=== PATIENT | male | born 1960 ===

== ENCOUNTER 2022-02-16 10:39 | Outpatient (CLI) | payer MEDICARE, SELFPAY | END 2022-02-16 10:40 | disposition home or self-care (01) | LOC: ANHAUDIO 10:42 | PROVIDERS: PCP Family Medicine; Visit Provider Family Medicine | DX: Z01.10 Encounter for examination of ears and hearing without abnormal findings (principal) | CPT/HCPCS: 92557; 92567 ==

== ENCOUNTER 2023-02-21 10:46 | Outpatient (CLI) | payer MEDICARE, MEDICAID, SELFPAY | END 2023-02-21 10:47 | disposition home or self-care (01) | LOC: ANHAUDIO 10:46 | PROVIDERS: PCP Family Medicine; Visit Provider Family Medicine | DX: H90.3 Sensorineural hearing loss, bilateral (principal) | CPT/HCPCS: 92557; 92567 ==

== ENCOUNTER 2024-02-27 07:51 | Outpatient (CLI) | payer MEDICARE, SELFPAY | END 2024-02-27 07:52 | disposition home or self-care (01) | LOC: ANHAUDIO 07:52 | PROVIDERS: PCP Family Medicine; Visit Provider Family Medicine | DX: Z01.10 Encounter for examination of ears and hearing without abnormal findings (principal); H90.3 Sensorineural hearing loss, bilateral; H61.21 Impacted cerumen, right ear | CPT/HCPCS: 92557; 92567 ==

== ENCOUNTER 2025-02-28 11:09 | Outpatient (CLI) | payer MEDICARE, MEDICAID, SELFPAY ==
--- OUTSIDE RECORDS SUMMARY | 2025-02-28 11:12 | XMS_ITS ---
Author Organization Unknown Address [address] [place] [address] [phone] Phone Care Team Providers Care Slot Floor Attendant Name Role Phone YOSEF Chowdhury Attending Unavailable SAHRA STILL CRNA Unavailable SUE Belle Primary Unavailable Immunization Immunization Date Status Additional Notes Code Code System Tdap 02/10/2022 Completed 115 CVX Influenza, split virus, trivalent, PF 05/28/2016 Completed 140 CVX Influenza, split virus, trivalent, preservative 05/03/2015 Completed 141 CVX Influenza, split virus, trivalent, preservative 04/24/2024 Completed 141 CVX Influenza, split virus, quadrivalent, PF 05/13/2017 Completed 150 CVX Influenza, split virus, quadrivalent, PF 04/26/2019 Completed 150 CVX Influenza, split virus, quadrivalent, preservative 04/20/2022 Completed 158 C VX Influenza, split virus, quadrivalent, preservative 04/19/2023 Completed 158 C VX Influenza, recombinant, quadrivalent, PF 05/16/2020 Completed 185 CVX COVID-19, mRNA, LNP-S, PF, 3 0 mcg/0.3 mL dose 10/20/2020 Completed 208 CVX COVID-19, mRNA, LNP-S, PF, 3 0 mcg/0.3 mL dose 11/10/2020 Completed 208 CVX COVID-19, mRNA, LNP-S, PF, 3 0 mcg/0.3 mL dose 05/25/2021 Completed 208 CVX COVID-19, mRNA, LNP-S, bivalent, PF, 30 mcg/0.3 mL dose 10/27/2022 Completed 300 CVX COVID-19, mRNA, LNP-S, PF, 5 0 mcg/0.5 mL 05/06/2024 Completed 312 CVX Social History Type Status Start Date End Date Code Code Syst em Smoking History Never smoker (Never Smoked) 920472164 SNOMED CT Sex Male Sexual Orientation Straight or Heterosexual 95032814 SNOMED CT Gender Identity Male [id number] [address] Vital Signs Vital Sign Value Unit [place] Value [place] Unit Date/Time Recent/Initial? Code Code System Body Mass Index 32.28 kg/m2 08/02/2024 08:08 Most Recent 02700 -5 LOINC Body Mass Index 32.28 kg/m2 07/24/2024 10:25 Initial 58391 -5 LOINC Systolic Blood Pressure 128 mm[Hg] 08/02/2024 08:18 Initial 8480- 6 LOINC Diastolic Blood Pressure 73 mm[Hg] 08/02/2024 08:18 Initial 8462- 4 LOINC Body Surface Area 2.25 m2 08/02/2024 08:08 Most Recent 3140- 1 LOINC Body Surface Area 2.25 m2 07/24/2024 10:25 Initial 3140- 1 LOINC Height 177.800 0 cm 70.00 in 08/02/2024 08:08 Most Recent 8302- 2 LOINC Height 177.800 0 cm 70.00 in 07/24/2024 10:25 Initial 8302- 2 LOINC O2 Saturation 97 % 2023 08:18 Initial 87965 -5 LOINC Pulse 85.0 /min 08/02/2024 08:18 Initial 8867- 4 LOINC Respiration 18 /min 08/02/20 08:18 Initial 9279- 1 LOINC Temperature 36.7 Zari 98.0 F 08/02/20 24 08:18 Initial 8310- 5 LOINC Weight 102.06 kg 225.00 lbs 08/02/2024 08:08 Most Recent 82733 -7 LOINC Weight 102.06 kg 225.00 lbs 07/24/2024 10:25 Initial 89395 -7 LOINC Medications Medication Start Date End Date Route Frequency Dose Code Code System Medication Instructions Home Meds Acetaminophen 325MG Oral Tablet 06/24/2022 Unknown ORAL NEEDED EVERY 4 HOURS 2 TABLET 360127 RxNorm TAKE 2 TABLET ORAL NEEDED EVERY 4 HOURS Benazepril Hydrochloride 20MG Oral Tablet 06/24/2022 Unknown ORAL TWICE A DAY 20 MILLIGRAMS 758985 RxNorm TAKE 20 MILLIGRAMS ORAL TWICE A DAY Eliquis 5MG Oral Tablet 06/24/2022 Unknown ORAL TWICE A DAY 5 MILLIGRAMS 1732008 RxNorm TAKE 5 MILLIGRAMS ORAL TWICE A DAY Fenofibrate 145MG Oral Tablet 06/24/2022 Unknown ORAL ONCE A DAY 145 MILLIGRAMS 829698 RxNorm TAKE 145 MILLIGRAMS ORAL ONCE A DAY Myrbetriq 25MG Oral Tablet, Extended Release 06/24/2022 Unknown ORAL ONCE A DAY 25 MILLIGRAMS 2495923 RxNorm TAKE 25 MILLIGRAMS ORAL ONCE A DAY Tamsulosin HCl 0.4MG Oral Capsule 06/24/2022 Unknown ORAL AT BEDTIME 0.4 MILLIGRAMS 403810 RxNorm TAKE 0.4 MILLIGRAMS ORAL AT BEDTIME Hospital Discharge Instructions Should you have any questions prior to discharge, please contact a member of your healthcare team. If you have left the hospital and have any questions, please contact your primary care physician. Reason For Referral No Data Found Procedures Procedure Name Date Status Code Code Syste m Anesthesia for lower intesti nal endoscopic procedures, endoscope introduce 08/02/2024 completed 51453 CPT Colonoscopy completed 27080837 SNOMEDCT Colonoscopy, flexible; with biopsy, single or multiple 08/02/2024 completed 19124 CPT Allergies and Adverse Reactions Allergy Substance Reaction Severity Start Date Concern Status Co de Code System No Known Allergies Moderate Active 448198747 SN OMED-CT Plan of Treatment COVID-19 Drive Thru Screen 06/16/2020 COVID-19 Antibody Therapy Infusion 03/14 Colonoscopy 06/24/2022 Colonoscopy 08/02/2024 US Kidney & Bladder (35084) 02/13/2025 Encounters Encounter Diagnosis Start Date Code Code Sys tem Encounter for screening for malignant neoplasm of colo n 08/02/2024 SNOMED-CT Personal Care Team Section Performer Name Performer Role Active Date Inactive CHAN Garnica PCP - Primary care physician 2022-04-20 Procedures Notes
--- OUTSIDE RECORDS SUMMARY | 2025-02-28 11:13 | XMS_ITS ---
Author Organization Unknown Address [address] [place] [address] [phone] Phone Care Team Providers Care Check Inspector Name Role Phone PETER JENNINGS Attending Unavailable SUE Belle Primary Unavailable Immunization Immunization [...] em Smoking History Never smoker (Never Smoked) 061677860 SNOMED CT Sex Male Sexual Orientation Straight or Heterosexual 52552751 SNOMED CT Gender Identity Male [id number] [address] Medications Medication Start Date End Date Route Frequency Dose Code Code System Medication Instructions Home Meds Acetaminophen 325MG Oral Tablet 06/24/2022 Unknown ORAL NEEDED EVERY 4 HOURS 2 TABLET 166312 RxNorm TAKE 2 TABLET ORAL NEEDED EVERY 4 HOURS Benazepril Hydrochloride 20MG Oral Tablet 06/24/2022 Unknown ORAL TWICE A DAY 20 MILLIGRAMS 474015 RxNorm TAKE 20 MILLIGRAMS ORAL TWICE A DAY Eliquis 5MG Oral Tablet 06/24/2022 Unknown ORAL TWICE A DAY 5 MILLIGRAMS 2137665 RxNorm TAKE 5 MILLIGRAMS ORAL TWICE A DAY Fenofibrate 145MG Oral Tablet 06/24/2022 Unknown ORAL ONCE A DAY 145 MILLIGRAMS 808963 RxNorm TAKE 145 MILLIGRAMS ORAL ONCE A DAY Myrbetriq 25MG Oral Tablet, Extended Release 06/24/2022 Unknown ORAL ONCE A DAY 25 MILLIGRAMS 6463325 RxNorm TAKE 25 MILLIGRAMS ORAL ONCE A DAY Tamsulosin HCl 0.4MG Oral Capsule 06/24/2022 Unknown ORAL AT BEDTIME 0.4 MILLIGRAMS 281904 RxNorm TAKE 0.4 MILLIGRAMS ORAL AT BEDTIME Hospital Discharge Instructions Should you have any questions prior to discharge, please contact a member of your healthcare team. If you have left the hospital and have any questions, please contact your primary care physician. Reason For Referral No Data Found Allergies and Adverse Reactions Allergy Substance Reaction Severity Start Date Concern Status Co de Code System No Known Allergies Moderate Active 907292638 SN OMED-CT Plan of Treatment COVID-19 Drive Thru Screen 06/16/2020 COVID-19 Antibody Therapy Infusion 03/14 Colonoscopy 06/24/2022 Colonoscopy 08/02/2024 Kidney & Bladder (06822) 02/13/2025 Encounters Encounter Diagnosis Start Date Code Code Sys tem Abnormal gait 02/11/2025 61511322 SNOMED-CT Personal Care Team Section Performer Name Performer Role Active Date Inactive CHAN Garnica PCP - Primary care physician 2022-04-20
--- OUTSIDE RECORDS SUMMARY | 2025-02-28 11:13 | XMS_ITS ---
Author Organization Unknown Address [address] [place] [address] [phone] Phone Care Team Providers Care Chief Operator Synthesis Name Role Phone PETER JENNINGS Attending Unavailable [...] em Smoking History Never smoker (Never Smoked) 131529213 SNOMED CT Sex Male Sexual Orientation Straight or Heterosexual 30568563 SNOMED CT Gender Identity Male [id number] [address] Medications Medication Start Date End Date Route Frequency Dose Code Code System Medication Instructions Home Meds Acetaminophen 325MG Oral Tablet 06/24/2022 Unknown ORAL NEEDED EVERY 4 HOURS 2 TABLET 674598 RxNorm TAKE 2 TABLET ORAL NEEDED EVERY 4 HOURS Benazepril Hydrochloride 20MG Oral Tablet 06/24/2022 Unknown ORAL TWICE A DAY 20 MILLIGRAMS 997370 RxNorm TAKE 20 MILLIGRAMS ORAL TWICE A DAY Eliquis 5MG Oral Tablet 06/24/2022 Unknown ORAL TWICE A DAY 5 MILLIGRAMS 4329624 RxNorm TAKE 5 MILLIGRAMS ORAL TWICE A DAY Fenofibrate 145MG Oral Tablet 06/24/2022 Unknown ORAL ONCE A DAY 145 MILLIGRAMS 595142 RxNorm TAKE 145 MILLIGRAMS ORAL ONCE A DAY Myrbetriq 25MG Oral Tablet, Extended Release 06/24/2022 Unknown ORAL ONCE A DAY 25 MILLIGRAMS 7040056 RxNorm TAKE 25 MILLIGRAMS ORAL ONCE A DAY Tamsulosin HCl 0.4MG Oral Capsule 06/24/2022 Unknown ORAL AT BEDTIME 0.4 MILLIGRAMS 518488 RxNorm TAKE 0.4 MILLIGRAMS ORAL AT BEDTIME [...] Code System No Known Allergies Moderate Active 749792130 SN OMED-CT Plan of Treatment COVID-19 Drive Thru Screen 06/16/2020 COVID-19 Antibody Therapy Infusion 03/14 Colonoscopy 06/24/2022 Colonoscopy 08/02/2024 Kidney & Bladder (42741) 02/13/2025 Encounters Encounter Diagnosis Start Date Code Code Sys tem Low back pain 07/05/2024 017719028 SNOMED-CT Personal Care Team Section Performer Name Performer Role Active Date Inactive CHAN Garnica PCP - Primary care physician 2022-04-20
--- OUTSIDE RECORDS SUMMARY | 2025-02-28 11:14 | XMS_ITS | Patient Health Record ---
Author Organization [facility] Address [address] [place] [address] Care Team Providers Care Cage/Vault Supervisor Name Role Phone Jodiepepper Apolinar Primary Care Provider SCOTT Ignacio Unavailable [phone] Allergies No Known Allergies Reason For Referral No Information Medications Medication SIG (Take, Route, Frequency, Duration) Notes Start Date End Date Status Finasteride 5 MG Oral for 31 Days Active Sertraline HCl 50 MG Oral for 31 Days Active Metoprolol Tartrate 25 MG Oral for 31 Days Active traZODone HCl 50 MG Oral for 31 Days Active risperiDONE 0.5 MG Oral for 31 Days Active Meloxicam 15 MG Oral for 31 Days Active Eliquis 5 MG Oral for 30 Days Active Fenofibrate 145 MG Oral for 31 Days Active Myrbetriq 50 MG Oral for 31 Days Active Esomeprazole Magnesium 40 MG Oral for 31 Days Active Tamsulosin HCl 0.4 MG Oral for 31 Days Active Amiodarone HCl 200 MG Oral for 31 Days Active Sertraline HCl 100 MG Oral for 31 Days Active Donepezil HCl 10 MG Oral for 31 Days Active Benazepril HCl 20 MG Oral for 31 Days Active Fluticasone Propionate 50 MCG/ACT Nasal for 30 Days Active Social History Tobacco Use: Social History Observation Description Date Details (start date - stop date) Never Smoker NA - NA Tobacco Control (Standard) Question Answer Notes Tobacco use: Nonsmoker Problems Problem Type SNOMED Code ICD Code Onset Dates Problem Status W/U Status Risk Notes Problem Peripheral vascular disease (643041324) Other specified peripheral vascular diseases (I73.89) Active confirmed Vital Signs Heart Rate 53 /min 02/24/2025 Blood pressure diastolic 74 mm Hg 02/24/2025 Height-cm 177.8 cm 02/24/2025 Weight-kg 99.79 kg 02/24/2025 Height 70 in 02/24/2025 Blood pressure systolic 115 mm Hg 02/24/2025 Weight 220 lbs 02/24/2025 BMI 31.56 kg/m2 02/24/2025 Encounters Encounter Location Date Provider Diagnosis [facility] [address] [place] [address] 11/26/2024 SCOTT COCKAYNE Nail dystrophy L60.3 ; Other specified peripheral vascular diseases I73.89 and Tinea unguium B35.1 [facility] [place] [address] 02/24/2025 SCOTT COCKAYNE Nail dystrophy L60.3 ; Other specified peripheral vascular diseases I73.89 and Tinea unguium B35.1 Assessments Encounter Date Diagnosis (ICD Code) Assessment Notes Treatment Notes Treatment Clinical Notes Section Notes 11/26/2024 Nail dystrophy (ICD-10 - L60.3) 02/24/2025 Nail dystrophy (ICD-10 - L60.3) 02/24/2025 Other specified peripheral vascular diseases (ICD-10 - I73.89) We discussed preventative foot care. We discussed preventative foot hygiene. We instructed the patient on how to care for their feet, and to contact the office if any wounds develop or signs of infection arise. Trimmed 8 nails, without incident. The nails were debrided of all fungal material and debris. Debridement included a reduction in bulk of the nail by use of a sharp outside cutter and/or rotary instrument. Reason for debridement include relief of pain, treatment of infection, temporary removal of an anatomic deformity such as onychauxis or onychocryptosis, exposure of subungual conditions for the purpose of treatment as well as diagnosis, and/or as a prophylactic measure to prevent further problems, such as subungual ulceration in an insensate patient with onychauxis. Antiseptic was applied. Debrided 2 nails without incident. We reviewed fungal nail and skin infections. We discussed the prognosis and treatment options. We discouraged topical therapy with due to low success rate. We discussed oral medications and potential side effects such as liver and/or kidney toxicity. We discussed the need to take the medication for nine to twelve months. We discussed rate of recurrence after treatment. We also discussed the option of observation. Due to comorbidities, will treat topically with occlusive ointments. 11/26/2024 Other specified peripheral vascular diseases (ICD-10 - I73.89) We discussed preventative foot care. We discussed preventative foot hygiene. We instructed the patient on how to care for their feet, and to contact the office if any wounds develop or signs of infection arise. Trimmed 8 nails, without incident. The nails were debrided of all fungal material and debris. Debridement included a reduction in bulk of the nail by use of a sharp outside cutter and/or rotary instrument. Reason for debridement include relief of pain, treatment of infection, temporary removal of an anatomic deformity such as onychauxis or onychocryptosis, exposure of subungual conditions for the purpose of treatment as well as diagnosis, and/or as a prophylactic measure to prevent further problems, such as subungual ulceration in an insensate patient with onychauxis. Antiseptic was applied. Debrided 2 nails without incident. We reviewed fungal nail and skin infections. We discussed the prognosis and treatment options. We discouraged topical therapy with due to low success rate. We discussed oral medications and potential side effects such as liver and/or kidney toxicity. We discussed the need to take the medication for nine to twelve months. We discussed rate of recurrence after treatment. We also discussed the option of observation. Due to comorbidities, will treat topically with occlusive ointments. 11/26/2024 Tinea unguium (ICD-10 - B35.1) 02/24/2025 Tinea unguium (ICD-10 - B35.1) 11/26/2024 Other Plan Of Treatment Next Appt Details Provider Name:SCOTT BARBA, 05/23/2025 10:30:00 AM, [address] [place], [address], Insurance Providers Payer Name Payer Address Payer Phone Subscriber Number Group Number Insured Name Patient Relationship to Insured Coverage Start Date Coverage End Date [place] [address] [place], [place] [phone] [id number] NONE KIERRA GARCIA Self - patient is the insured [place] [employer] [employer] [address] [address] [place] [address] [phone] [id number] KIERRA GARCIA Self - patient is the insured Medical (General) History Medical History History ICD Code hypertension DVT depression anxiety
--- OUTSIDE RECORDS SUMMARY | 2025-02-28 11:14 | XMS_ITS ---
Author Organization Unknown Address [address] [place] [address] [phone] Phone Care Team Providers Care Clinical Supervisor Name Role Phone PETER JENNINGS Attending Unavailable [...] em Smoking History Never smoker (Never Smoked) 784361446 SNOMED CT Sex Male Sexual Orientation Straight or Heterosexual 71498470 SNOMED CT Gender Identity Male [id number] [address] Medications Medication Start Date End Date Route Frequency Dose Code Code System Medication Instructions Home Meds Acetaminophen 325MG Oral Tablet 06/24/2022 Unknown ORAL NEEDED EVERY 4 HOURS 2 TABLET 191832 RxNorm TAKE 2 TABLET ORAL NEEDED EVERY 4 HOURS Benazepril Hydrochloride 20MG Oral Tablet 06/24/2022 Unknown ORAL TWICE A DAY 20 MILLIGRAMS 244155 RxNorm TAKE 20 MILLIGRAMS ORAL TWICE A DAY Eliquis 5MG Oral Tablet 06/24/2022 Unknown ORAL TWICE A DAY 5 MILLIGRAMS 6065614 RxNorm TAKE 5 MILLIGRAMS ORAL TWICE A DAY Fenofibrate 145MG Oral Tablet 06/24/2022 Unknown ORAL ONCE A DAY 145 MILLIGRAMS 516977 RxNorm TAKE 145 MILLIGRAMS ORAL ONCE A DAY Myrbetriq 25MG Oral Tablet, Extended Release 06/24/2022 Unknown ORAL ONCE A DAY 25 MILLIGRAMS 8203295 RxNorm TAKE 25 MILLIGRAMS ORAL ONCE A DAY Tamsulosin HCl 0.4MG Oral Capsule 06/24/2022 Unknown ORAL AT BEDTIME 0.4 MILLIGRAMS 981473 RxNorm TAKE 0.4 MILLIGRAMS ORAL AT BEDTIME [...] Code System No Known Allergies Moderate Active 796530609 SN OMED-CT Plan of Treatment COVID-19 Drive Thru Screen 06/16/2020 COVID-19 Antibody Therapy Infusion 03/14 Colonoscopy 06/24/2022 Colonoscopy 08/02/2024 Kidney & Bladder (06602) 02/13/2025 Encounters Encounter Diagnosis Start Date Code Code Sys tem Abnormal gait 12/03/2024 48700590 SNOMED-CT Personal Care Team Section Performer Name Performer Role Active Date Inactive CHAN Garnica PCP - Primary care physician 2022-04-20
--- OUTSIDE RECORDS SUMMARY | 2025-02-28 11:14 | XMS_ITS ---
Author Organization Unknown Address [address] [place] [address] [phone] Phone Care Team Providers Care Silverware Supervisor Name Role Phone YAO Carlson Attending Unavailable SUE Belle Primary Unavailable Immunization [...] 0 mcg/0.5 mL 05/06/2024 Completed 312 CVX Results CBC W/ DIFF - Collect Date/T lili: 10/11/2024 15:00 [facility] [id number] [address] [place], [place], [phone] LOINC: 60700-6 Test Value Unit Reference Range Code Code System Flag WBC 7.4 10^3uL L=4.8 H=10.8 RBC 4.32 10^6uL L=4.60 H=6.20 L HEMOGLOBIN 11.2 g/dL L=14.0 H=18.0 718-7 LOINC L HEMATOCRIT 37.0 VOL% L=42.0 H=52.0 4544-3 LOINC L MCV 85.6 fL L=80.0 H=94.0 MCH 25.9 pg L=27.0 H=32.0 L MCHC 30.3 g/dL L=32.0 H=36.0 L PLATELETS 253 10^3uL L=100 H=400 83465-6 LOINC RDW 16.2 % L=11.7 H=15.5 H %GRAN 70.0 % L=40.0 H=70.0 58635-5 LOINC %LYMPH 16.2 % L=20.0 H=45.0 736-9 LOINC L %MONO 7.3 % L=2.0 H=10.0 61504-2 LOINC %EOS 4.9 % L=0.0 H=6.0 713-8 LOINC %BASO 1.2 % L=0.0 H=3.0 706-2 LOINC #NEUT 5.2 10^3uL L=1.9 H=7.6 82842-0 LOINC #LYMPH 1.2 10^3uL L=0.9 H=4.9 64135-2 LOINC #MONO 0.5 10^3uL L=0.1 H=0.9 61341-5 LOINC #EOS 0.4 10^3uL L=0.0 H=0.6 712-0 LOINC #BASO 0.09 10^3uL L=0.00 H=0.10 61176-7 LOINC #IM GRANS 0.0 10^3uL L=0.0 H=7.0 02425-2 LOINC %IM GRANS 0.4 % L=0.0 H=5.0 28264-0 LOINC %NRB 0.0 L=0.0 H=0.2 23976-5 LOINC #NRB 0.000 L=0.000 H=0.012 96456-3 LOINC MANUAL DIFF NOT INDICATED RBC MORPH NOT INDICATED COMPREHENSIVE METABOLIC PANE L - Collect Date/Time: 10/11/2024 15:00 [facility] [id number] [address] [place], [place], [id number] LOINC: 63707-0 Test Value Unit Reference Range Code Code System Flag FASTING UNKNOWN BUN 17 mg/dL L=7 H=20 3094-0 LOINC CREATININE 0.60 mg/dL L=0.66 H=1.25 2160-0 LOINC L GLUCOSE 125 mg/dL L=74 H=106 2345-7 LOINC H SODIUM 139 mmol/L L=132 H=144 2951-2 LOINC POTASSIUM 3.8 mmol/L L=3.5 H=5.1 2823-3 LOINC CHLORIDE 107 mmol/L L=98 H=107 2075-0 LOINC CO2 25.0 mmol/L L=22.0 H=30.0 8-9 LOINC ANION GAP 11 L=10 H=20 47385-4 LOINC OSMOLALITY 291 mOs/kG L=280 H=296 03068-1 LOINC BUN/CREAT 28.3 3097-3 LOINC CALCIUM 8.7 mg/dL L=8.3 H=10.5 61978-7 LOINC AST 32 U/L L=15 H=46 1920-8 LOINC ALT 29 U/L L=9 H=72 1742-6 LOINC ALKALINE PHOS 64 U/L L=38 H=126 6768-6 LOINC TOTAL BILI 0.2 mg/dL L=0.2 H=1.3 1975-2 LOINC ALBUMIN 3.2 G/dL L=3.5 H=5.0 1751-7 LOINC L TOTAL PROTEIN 6.7 g/L L=6.3 H=8.2 2885-2 LOINC A/G RATIO 0.9 11667-6 LOINC AGE 64 32316-5 LOINC eGFR NON-AFR 144 ml/min eGFR AFR AMER 174 ml/min US ABD LIMITED - Completed: 10/11/2024 15:21 LOINC: \TM00\\12PI\\DRAo\\BM09\ \MRHo\ [address] [address] ---------NAME--------- NUMBER SEX AGE ADMIT DISC. XRAY# F/C TYPE JOSE MACDONALD [id number] M 64 10/11/24 97993 AMALIA E.R. DATE OF : 1960 M/R# [id number] #: [id number] ED-34 \MRHx\ LOCATION: TRANSCRIBED: 10/11/24 15:27 US ABD LIMITED [id number] COMPLETED:10/11/24 15:21 APC [id number] ;g tube pus drainage PHYSICIAN: YAO PHI R A D I O L O G Y R E P O R T Exam: US ABD LIMITED Date: 10/11/2024 03:02 PM Clinical History: g tube pus drainage Comparison: 08/08/24 Technique: Targeted sonographic evaluation of the soft tissues of the abdomen region was obtained utilizing grayscale and color Doppler imaging. Findings/Impression: Ill-defined fluid in the soft tissues adjacent to the gastrostomy tube which may represent phlegmonous change given clinical history. No organized fluid collection. INIST CLASS B \ITLo\ \UNDo\ \UNDx\ \ITLx\ Reviewed and Electronically Signed by: Diamond Hamilton MD Signed Date: 10/11/24 15:27 Social History Type Status Start Date End Date Code Code Syst em Smoking History Never smoker (Never Smoked) 145977596 SNOMED CT Sex Male Sexual Orientation Straight or Heterosexual 44700246 SNOMED CT Gender Identity Male 96209305324278 [address] Medications Medication Start Date End Date Route Frequency Dose Code Code System Medication Instructions Home Meds Acetaminophen 325MG Oral Tablet 06/24/2022 Unknown ORAL NEEDED EVERY 4 HOURS 2 TABLET 013591 RxNorm TAKE 2 TABLET ORAL NEEDED EVERY 4 HOURS Benazepril Hydrochloride 20MG Oral Tablet 06/24/2022 Unknown ORAL TWICE A DAY 20 MILLIGRAMS 432000 RxNorm TAKE 20 MILLIGRAMS ORAL TWICE A DAY Eliquis 5MG Oral Tablet 06/24/2022 Unknown ORAL TWICE A DAY 5 MILLIGRAMS 4125740 RxNorm TAKE 5 MILLIGRAMS ORAL TWICE A DAY Fenofibrate 145MG Oral Tablet 06/24/2022 Unknown ORAL ONCE A DAY 145 MILLIGRAMS 980471 RxNorm TAKE 145 MILLIGRAMS ORAL ONCE A DAY Myrbetriq 25MG Oral Tablet, Extended Release 06/24/2022 Unknown ORAL ONCE A DAY 25 MILLIGRAMS 7504459 RxNorm TAKE 25 MILLIGRAMS ORAL ONCE A DAY Tamsulosin HCl 0.4MG Oral Capsule 06/24/2022 Unknown ORAL AT BEDTIME 0.4 MILLIGRAMS 664439 RxNorm TAKE 0.4 MILLIGRAMS ORAL AT BEDTIME [...] Code System No Known Allergies Moderate Active 303154157 SN OMED-CT Plan of Treatment COVID-19 Drive Thru Screen 06/16/2020 COVID-19 Antibody Therapy Infusion 03/14 Colonoscopy 06/24/2022 Colonoscopy 08/02/2024 US Kidney & Bladder (37352) 02/13/2025 Encounters Encounter Diagnosis Start Date Code Code Sys tem Encounter for attention to gastrostomy 10/11/2024 SNOMED-CT Personal Care Team Section Performer Name Performer Role Active Date Inactive CHAN Garnica PCP - Primary care physician 2022-04-20 Imaging Narrative Notes [facility] 10/11/2024 15:[address] [address] ---------NAME--------- NUMBER SEX AGE ADMIT DISC. XRAY# F/C TYPE JOSE MACDONALD [id number] M 64 10/11/24 87967 E.R. DATE OF : 1960 M/R# [id number] PH#: [id number] ED-34 LOCATION: TRANSCRIBED: 10/11/24 15:27 US ABD LIMITED [id number] COMPLETED:10/11/24 15:21 APC [id number] ;g tube pus drainage PHYSICIAN: YAO PHI RADIOLOGY REPORT Exam: US ABD LIMITED Date: 10/11/2024 03:02 PM Clinical History: g tube pus drainage Comparison: 08/08/24 Technique: Targeted sonographic evaluation of the soft tissues of the abdomen region was obtained utilizing grayscale and color Doppler imaging. Findings/Impression: Ill-defined fluid in the soft tissues adjacent to the gastrostomy tube which may represent phlegmonous change given clinical history. No organized fluid collection. INIST CLASS B Reviewed and Electronically Signed by: Diamond Hamliton MD Signed Date: 10/11/24 15:27
--- OUTSIDE RECORDS SUMMARY | 2025-02-28 11:14 | XMS_ITS ---
Author Organization Unknown Address [address] [place] [phone] Phone Care Team Providers Care Facility Maintenance Mechanic Name Role Phone LEATHA RAMAN Attending Unavailable SUE Belle Primary Unavailable Immunization [...] CBC W/ DIFF - Collect Date/T lili: 08/08/2024 15:09 [facility] ID: [id number] [id number] [place], [place], [id number] LOINC: 79910-6 Test Value Unit Reference Range Code Code System Flag WBC 17.2 10^3uL L=4.8 H=10.8 H RBC 2.52 10^6uL L=4.60 H=6.20 L HEMOGLOBIN 7.2 g/dL L=14.0 H=18.0 718-7 LOINC LL CALLED TO: AT: 1524 BY: AMA HEMATOCRIT 21.8 VOL% L=42.0 H=52.0 4544-3 LOINC L MCV 86.5 fL L=80.0 H=94.0 MCH 28.6 pg L=27.0 H=32.0 MCHC 33.0 g/dL L=32.0 H=36.0 PLATELETS 320 10^3uL L=100 H=400 16975-9 LOINC RDW 14.0 % L=11.7 H=15.5 %GRAN 66.1 % L=40.0 H=70.0 62013-2 LOINC %LYMPH 20.9 % L=20.0 H=45.0 736-9 LOINC %MONO 8.1 % L=2.0 H=10.0 31110-8 LOINC %EOS 1.6 % L=0.0 H=6.0 713-8 LOINC %BASO 0.6 % L=0.0 H=3.0 706-2 LOINC #NEUT 11.3 10^3uL L=1.9 H=7.6 98529-0 LOINC H #LYMPH 3.6 10^3uL L=0.9 H=4.9 40287-1 LOINC #MONO 1.4 10^3uL L=0.1 H=0.9 70140-0 LOINC H #EOS 0.3 10^3uL L=0.0 H=0.6 712-0 LOINC #BASO 0.11 10^3uL L=0.00 H=0.10 61236-3 LOINC H #IM GRANS 0.5 10^3uL L=0.0 H=7.0 92920-1 LOINC %IM GRANS 2.7 % L=0.0 H=5.0 23991-2 LOINC %NRB 0.0 L=0.0 H=0.2 46033-6 LOINC #NRB 0.000 L=0.000 H=0.012 58106-6 LOINC MANUAL DIFF NOT INDICATED RBC MORPH NOT INDICATED COMPREHENSIVE METABOLIC PANE L - Collect Date/Time: 08/08/2024 15:09 [facility] ID: [id number] [address] [place], [place], [id number] LOINC: 34021-2 Test Value Unit Reference Range Code Code System Flag FASTING UNKNOWN BUN 31 mg/dL L=7 H=20 3094-0 LOINC H CREATININE 1.10 mg/dL L=0.66 H=1.25 2160-0 LOINC GLUCOSE 200 mg/dL L=74 H=106 2345-7 LOINC H SODIUM 134 mmol/L L=132 H=144 2951-2 LOINC POTASSIUM 3.0 mmol/L L=3.5 H=5.1 2823-3 LOINC L CHLORIDE 106 mmol/L L=98 H=107 2075-0 LOINC CO2 19.0 mmol/L L=22.0 H=30.0 2028-9 LOINC L ANION GAP 12 L=10 H=20 86020-1 LOINC OSMOLALITY 290 mOs/kG L=280 H=296 81509-0 LOINC BUN/CREAT 28.2 3097-3 LOINC CALCIUM 7.5 mg/dL L=8.3 H=10.5 76685-8 LOINC L AST 22 U/L L=15 H=46 1920-8 LOINC ALT 20 U/L L=9 H=72 1742-6 LOINC ALKALINE PHOS 37 U/L L=38 H=126 6768-6 LOINC L TOTAL BILI 0.2 mg/dL L=0.2 H=1.3 1975-2 LOINC ALBUMIN 2.2 G/dL L=3.5 H=5.0 1751-7 LOINC L TOTAL PROTEIN 4.3 g/L L=6.3 H=8.2 2885-2 LOINC L A/G RATIO 1.0 88222-4 LOINC AGE 64 72400-0 LOINC eGFR NON-AFR 72 ml/min eGFR AFR AMER 87 ml/min PTT - Collect Date/Time: 15:09 [facility] ID: [id number] [place] [address], [id number] LOINC: 11460-1 Test Value Unit Reference Range Code Code System Flag PTT 22.1 Sec L=23.0 H=31.2 L PROTIME - Collect Date/Time: 08/08/2024 15:09 [facility] ID: [id number] [address] [place] [address], [id number] LOINC: 54993-9 Test Value Unit Reference Range Code Code System Flag PT 12.4 Sec L=9.7 H=11.7 51469-6 LOINC H INR 1.2 Sec L=0.9 H=1.1 74303-5 LOINC H LACTIC ACID - Collect Date/T lili: 08/08/2024 15:09 [facility] ID: [id number] [address] [place] [address], [phone] LOINC: 83345-0 Test Value Unit Reference Range Code Code System Flag LACTIC ACID 5.1 mmol/L L=0.7 H=2.6 20031-6 LOINC CALLED TO: CHELO RODRIGUEZ RN AT: 1531 BY: A[facility]A TROPONIN LEVEL - Collect Issa e/Time: 08/08/2024 15:09 [facility] ID: [id number] [address] [place] [address], [phone] LOINC: 74432-3 Test Value Unit Reference Range Code Code System Flag TROPONIN < 0.012 ng/mL L=0.000 H=0.033 05808-3 LOINC BB RETYPE ABO AND RH TYPE - Collect Date/Time: 08/08/2024 15:09 [facility] ID: [id number] [address] [place], [place], [id number] LOINC: 54059-6 Test Value Unit Reference Range Code Code System Flag ABO TYPE A 883-9 LOINC RH TYPE POSITIVE BB ABO AND RH TYPE - Collect Date/Time: 08/08/2024 15:09 [facility] ID: [id number] [address] [place], [place], [id number] LOINC: 49090-1 Test Value Unit Reference Range Code Code System Flag ABO TYPE A 883-9 LOINC RH TYPE POSITIVE CHEST 1V - Completed: 2023 15:22 LOINC: EXAM DESCRIPTION: CHEST 1V REASON FOR STUDY: weakness Duration: today TECHNIQUE: 1 radiographic view(s) of the chest. COMPARISON: 07/30/2020. FINDINGS: LUNGS: No pneumonic consolidation or definite pulmonary edema seen. No pleural effusion or pneumothorax identified. HEART/MEDIASTINUM: Unchanged heart size and cardiomediastinal contours, allowing for differences in technique. LINES/TUBES: None. BONES: No gross evidence of acute displaced fracture or aggressive bone lesion. IMPRESSION: No acute cardiopulmonary findings. THIS IS AN ELECTRONICALLY VERIFIED FINAL REPORT 08/08/2024 3:50 PM - Electronically signed by Frankie Hanson M.D. MZ: MZ Report ID: [id number] Reading Location: [id number] CT ANGIO ABD/PEL W+WO CONTRA ST - Completed: 08/08/2024 16:14 LOINC: EXAM DESCRIPTION: CT CHEST PE ANGIO W/ CONTRAST; CT ANGIO ABD/PEL W+WO CONTRAST REASON FOR STUDY: Assess for dissection, hypotensive with the pressure of 60 and hemoglobin of 7, GI bleed and like stool. TECHNIQUE: CTA scan of the chest, abdomen, and pelvis performed without and with intravenous and without oral contrast using helical scanning technique with dynamic intravenous contrast injection. Precontrast images of the chest were acquired. Arterial phase images of the chest, abdomen, and pelvis as well as portal venous phase images of the abdomen were also acquired. Reconstructed coronal and sagittal MPR images reviewed. All images stored on PACS. 3D MIP images rendered on scanning unit and reviewed at time of interpretation. Automated exposure control was used as a dose optimization technique for this examination. CONTRAST TYPE/DOSE: 100 of isovue 370 injected via rac; rac COMPARISON: Correlation is made with a CT angiogram chest 06/18/2020. Correlation is also made with the CT abdomen and pelvis from 08/04/2024. FINDINGS: VASCULATURE There is motion artifact on the examination which degrades the quality of the study. There is no evidence of an acute intramural hematoma of the thoracic or abdominal aorta. Within the limitations of motion, there are no findings which would indicate thoracic aortic dissection. The great vessel artery origins are patent although there is some motion which limits the brachiocephalic artery. There is a filling defect in the right lower lobe pulmonary artery evidence of pulmonary embolism in the lobar artery. This is evidence of pulmonary embolism. Pulmonary embolism was previously noted at this area from 06/18/2020 but uncertain what extent the current findings may be potentially acute/subacute or chronic. Other previous pulmonary embolism has resolved. No other pulmonary embolism is seen within the limitations of the study with some of the subsegmental arteries not well opacified. Abdominal aorta is nonaneurysmal. The origin of the celiac axis, SMA, bilateral renal arteries and the KHALIF are patent. There is a blush of high density in the proximal duodenal (for example series 5, image 109) which is suspicious for an area of active gastrointestinal hemorrhage. This is seen on coronal series 7, image 60. No other findings which would otherwise localize of potential site of active gastrointestinal hemorrhage. CHEST LUNGS: Motion artifact is noted. There are patchy opacities in the lungs especially in the right upper lobe with tree-in-bud opacities and mild opacity right lower lobe likely infectious/inflammatory, asymmetric edema is thought less likely. PLEURA: Small right pleural effusion with enhancing atelectasis. MEDIASTINUM/VENUS: No mediastinal or hilar mass. There is some mild wall thickening of the distal esophagus. HEART: The heart is mildly enlarged. There is no pericardial effusion. AXILLA: No axillary lymphadenopathy is seen. CHEST WALL: No chest wall mass or subcutaneous emphysema. HARDWARE/LINES/TUBES: None. MUSCULOSKELETAL CHEST: Bone windows of the chest demonstrate no acute or aggressive osseous abnormality. ABDOMEN/PELVIS The images through the abdomen and pelvis are very noisy, this appears to be due to a very low mA used for the abdomen and pelvis, for example on the current study the MAA through the abdomen is 140 where as on the recent prior study 576. This results in photon poor and lower quality abdomen and pelvis CT images. LIVER: Liver size and contour normal. No focal splenic lesion. There is diffuse hepatic steatosis. There is the low-density lesion in the left hepatic lobe that appears to be a cyst. This lesion is 1.3 cm. GALLBLADDER: Gallbladder is not well assessed due to the photon poor images. There may be some biliary sludge in the gallbladder. BILE DUCTS: No biliary ductal dilation is seen. SPLEEN: Spleen size is normal. There is no focal splenic lesion. PANCREAS: No pancreatic mass or inflammatory change. ADRENALS: Normal KIDNEYS/URINARY TRACT: Right lower pole calculus 0.5 cm. No left renal calculus. No ureteral calculus. No hydronephrosis or hydroureter. The urinary bladder is decompressed by Irby catheter. GI: The terminal ileum is normal. The appendix appears to be normal. There is some mild wall thickening of the esophagus. The stomach is very distended with fluid and material which may be food material. This distension places the patient at risk for aspiration. The distended stomach may be related to outlet obstruction from abnormality of the duodenum. There is a small pocket of curvilinear air in the proximal duodenum which may be related to peptic ulcer disease without prosper perforation. There appears to be some wall thickening of the duodenal and this is also the location of what is suspected to be active gastrointestinal hemorrhage. GI consultation with endoscopy recommended, may also consider gastric tube decompression. PERITONEUM: No ascites or free air. No mesenteric mass or lymphadenopathy. RETROPERITONEUM: No retroperitoneal mass or lymphadenopathy. REPRODUCTIVE: No significant abnormalities are seen. VASCULATURE ABDOMEN: Abdominal aorta is nonaneurysmal. MUSCULOSKELETAL ABDOMEN PELVIS: Bone windows demonstrate no acute or aggressive osseous abnormality. OTHER: No significant abnormality. IMPRESSION: ? ? Blush of high density in the proximal duodenum suspicious for an area of active gastrointestinal hemorrhage. ? ? Evidence of pulmonary embolism in the right lower lobe lobar artery. Pulmonary embolism previously noted on 06/18/2020 but uncertain to what extent the current findings may be acute/subacute or chronic. Other previous pulmonary embolism has resolved. ? ? Very distended stomach with fluid and material which may be food material. This places the patient at risk for aspiration. The distended stomach may be related to outlet obstruction from abnormality of the duodenum most likely peptic ulcer disease. ? ? Small pocket of curvilinear air in the proximal duodenum which may be related to peptic ulcer disease without prosper perforation. GI consultation with endoscopy recommended. ? ? Mild wall thickening of the esophagus. May consider a esophagitis. This may be related to the same process. ? ? Small right pleural effusion with enhancing atelectasis. ? ? No evidence of an acute aortic abnormality. ? ? Patchy opacities in the lungs especially in the right upper lobe likely infectious/inflammatory. ? ? Hepatic steatosis. ? ? Right renal calculus. ? ? Note that the assessment of the abdomen is limited by very noisy images. Result of critical test was provided to Dr. Michaelle Parrish by [facility] at approximately 5:06 pm central time on 08/08/2024 . THIS IS AN ELECTRONICALLY VERIFIED FINAL REPORT 08/08/2024 5:06 PM - Electronically signed by Alexander Street M.D. CH: NIRMALA Report ID: [id number] Reading Location: [place] [address] CT CHEST PE ANGIO W/ CONTRAS T - Completed: 08/08/2024 16:15 LOINC: 58150-3 EXAM DESCRIPTION: CT CHEST PE ANGIO W/ CONTRAST; CT ANGIO ABD/PEL W+WO CONTRAST REASON FOR STUDY: Assess for dissection, hypotensive with the pressure of 60 and hemoglobin of 7, GI bleed and like stool. TECHNIQUE: CTA scan of the chest, abdomen, and pelvis performed without and with intravenous and without oral contrast using helical scanning technique with dynamic intravenous contrast injection. Precontrast images of the chest were acquired. Arterial phase images of the chest, abdomen, and pelvis as well as portal venous phase images of the abdomen were also acquired. Reconstructed coronal and sagittal MPR images reviewed. All images stored on PACS. 3D MIP images rendered on scanning unit and reviewed at time of interpretation. Automated exposure control was used as a dose optimization technique for this examination. CONTRAST TYPE/DOSE: 100 of isovue 370 injected via rac; rac COMPARISON: Correlation is made with a CT angiogram chest 06/18/2020. Correlation is also made with the CT abdomen and pelvis from 08/04/2024. FINDINGS: VASCULATURE There is motion artifact on the examination which degrades the quality of the study. There is no evidence of an acute intramural hematoma of the thoracic or abdominal aorta. Within the limitations of motion, there are no findings which would indicate thoracic aortic dissection. The great vessel artery origins are patent although there is some motion which limits the brachiocephalic artery. There is a filling defect in the right lower lobe pulmonary artery evidence of pulmonary embolism in the lobar artery. This is evidence of pulmonary embolism. Pulmonary embolism was previously noted at this area from 06/18/2020 but uncertain what extent the current findings may be potentially acute/subacute or chronic. Other previous pulmonary embolism has resolved. No other pulmonary embolism is seen within the limitations of the study with some of the subsegmental arteries not well opacified. Abdominal aorta is nonaneurysmal. The origin of the celiac axis, SMA, bilateral renal arteries and the KHALIF are patent. There is a blush of high density in the proximal duodenal (for example series 5, image 109) which is suspicious for an area of active gastrointestinal hemorrhage. This is seen on coronal series 7, image 60. No other findings which would otherwise localize of potential site of active gastrointestinal hemorrhage. CHEST LUNGS: Motion artifact is noted. There are patchy opacities in the lungs especially in the right upper lobe with tree-in-bud opacities and mild opacity right lower lobe likely infectious/inflammatory, asymmetric edema is thought less likely. PLEURA: Small right pleural effusion with enhancing atelectasis. MEDIASTINUM/VENUS: No mediastinal or hilar mass. There is some mild wall thickening of the distal esophagus. HEART: The heart is mildly enlarged. There is no pericardial effusion. AXILLA: No axillary lymphadenopathy is seen. CHEST WALL: No chest wall mass or subcutaneous emphysema. HARDWARE/LINES/TUBES: None. MUSCULOSKELETAL CHEST: Bone windows of the chest demonstrate no acute or aggressive osseous abnormality. ABDOMEN/PELVIS The images through the abdomen and pelvis are very noisy, this appears to be due to a very low mA used for the abdomen and pelvis, for example on the current study the MAA through the abdomen is 140 where as on the recent prior study 576. This results in photon poor and lower quality abdomen and pelvis CT images. LIVER: Liver size and contour normal. No focal splenic lesion. There is diffuse hepatic steatosis. There is the low-density lesion in the left hepatic lobe that appears to be a cyst. This lesion is 1.3 cm. GALLBLADDER: Gallbladder is not well assessed due to the photon poor images. There may be some biliary sludge in the gallbladder. BILE DUCTS: No biliary ductal dilation is seen. SPLEEN: Spleen size is normal. There is no focal splenic lesion. PANCREAS: No pancreatic mass or inflammatory change. ADRENALS: Normal KIDNEYS/URINARY TRACT: Right lower pole calculus 0.5 cm. No left renal calculus. No ureteral calculus. No hydronephrosis or hydroureter. The urinary bladder is decompressed by Irby catheter. GI: The terminal ileum is normal. The appendix appears to be normal. There is some mild wall thickening of the esophagus. The stomach is very distended with fluid and material which may be food material. This distension places the patient at risk for aspiration. The distended stomach may be related to outlet obstruction from abnormality of the duodenum. There is a small pocket of curvilinear air in the proximal duodenum which may be related to peptic ulcer disease without prosper perforation. There appears to be some wall thickening of the duodenal and this is also the location of what is suspected to be active gastrointestinal hemorrhage. GI consultation with endoscopy recommended, may also consider gastric tube decompression. PERITONEUM: No ascites or free air. No mesenteric mass or lymphadenopathy. RETROPERITONEUM: No retroperitoneal mass or lymphadenopathy. REPRODUCTIVE: No significant abnormalities are seen. VASCULATURE ABDOMEN: Abdominal aorta is nonaneurysmal. MUSCULOSKELETAL ABDOMEN PELVIS: Bone windows demonstrate no acute or aggressive osseous abnormality. OTHER: No significant abnormality. IMPRESSION: ? ? Blush of high density in the proximal duodenum suspicious for an area of active gastrointestinal hemorrhage. ? ? Evidence of pulmonary embolism in the right lower lobe lobar artery. Pulmonary embolism previously noted on 06/18/2020 but uncertain to what extent the current findings may be acute/subacute or chronic. Other previous pulmonary embolism has resolved. ? ? Very distended stomach with fluid and material which may be food material. This places the patient at risk for aspiration. The distended stomach may be related to outlet obstruction from abnormality of the duodenum most likely peptic ulcer disease. ? ? Small pocket of curvilinear air in the proximal duodenum which may be related to peptic ulcer disease without prosper perforation. GI consultation with endoscopy recommended. ? ? Mild wall thickening of the esophagus. May consider a esophagitis. This may be related to the same process. ? ? Small right pleural effusion with enhancing atelectasis. ? ? No evidence of an acute aortic abnormality. ? ? Patchy opacities in the lungs especially in the right upper lobe likely infectious/inflammatory. ? ? Hepatic steatosis. ? ? Right renal calculus. ? ? Note that the assessment of the abdomen is limited by very noisy images. Result of critical test was provided to Dr. Michaelle Parrish by KARLOS THACKER at approximately 5:06 pm central time on 08/08/2024 . THIS IS AN ELECTRONICALLY VERIFIED FINAL REPORT 08/08/2024 5:06 PM - Electronically signed by Alexander Steret M.D. CH: Report ID: [id number] Reading Location: [place] [address] Social History Type Status Start Date End Date Code Code Syst em Smoking History Never smoker (Never Smoked) 990094639 SNOMED CT Sex Male Sexual Orientation Straight or Heterosexual 90814814 SNOMED CT Gender Identity Male [id number] Medications Medication Start Date End Date Route Frequency Dose Code Code System Medication Instructions Home Meds Acetaminophen 325MG Oral Tablet 06/24/2022 Unknown ORAL NEEDED EVERY 4 HOURS 2 TABLET 938721 RxNorm TAKE 2 TABLET ORAL NEEDED EVERY 4 HOURS Benazepril Hydrochloride 20MG Oral Tablet 06/24/2022 Unknown ORAL TWICE A DAY 20 MILLIGRAMS 831520 RxNorm TAKE 20 MILLIGRAMS ORAL TWICE A DAY Eliquis 5MG Oral Tablet 06/24/2022 Unknown ORAL TWICE A DAY 5 MILLIGRAMS 3244034 RxNorm TAKE 5 MILLIGRAMS ORAL TWICE A DAY Fenofibrate 145MG Oral Tablet 06/24/2022 Unknown ORAL ONCE A DAY 145 MILLIGRAMS 951726 RxNorm TAKE 145 MILLIGRAMS ORAL ONCE A DAY Myrbetriq 25MG Oral Tablet, Extended Release 06/24/2022 Unknown ORAL ONCE A DAY 25 MILLIGRAMS 5527083 RxNorm TAKE 25 MILLIGRAMS ORAL ONCE A DAY Tamsulosin HCl 0.4MG Oral Capsule 06/24/2022 Unknown ORAL AT BEDTIME 0.4 MILLIGRAMS 335995 RxNorm TAKE 0.4 MILLIGRAMS ORAL AT BEDTIME Hospital Discharge Instructions Should you have any questions prior to discharge, please contact a member of your healthcare team. If you have left the hospital and have any questions, please contact your primary care physician. Reason For Referral No Data Found Procedures Procedure Name Date Status Code Code Syste m Transfusion, blood or blood components 08/08/2024 complete d 56102 CPT Allergies and Adverse Reactions Allergy Substance Reaction Severity Start Date Concern Status Co de Code System No Known Allergies Moderate Active 474289904 SN OMED-CT Plan of Treatment COVID-19 Drive Thru Screen 06/16/2020 COVID-19 Antibody Therapy Infusion 03/14 Colonoscopy 06/24/2022 Colonoscopy 08/02/2024 Kidney & Bladder (32834) 02/13/2025 Encounters Encounter Diagnosis Start Date Code Code Sys tem Gastrointestinal hemorrhage, unspecified 08/08/2024 SNOMED-CT Personal Care Team Section Performer Name Performer Role Active Date Inactive CHAN Garnica PCP - Primary care physician 2022-04-20 Imaging Narrative Notes
--- OUTSIDE RECORDS SUMMARY | 2025-02-28 11:14 | XMS_ITS ---
Author Organization Unknown Address [address] [place] [phone] Phone Care Team Providers Care Lead Printer Name Role Phone PETER JENNINGS Attending Unavailable [...] em Smoking History Never smoker (Never Smoked) [id number] SNOMED CT Sex Male Sexual Orientation Straight or Heterosexual 49235691 SNOMED CT Gender Identity Male [id number] Medications Medication Start Date End Date Route Frequency Dose Code Code System Medication Instructions Home Meds Acetaminophen 325MG Oral Tablet 06/24/2022 Unknown ORAL NEEDED EVERY 4 HOURS 2 TABLET 610670 RxNorm TAKE 2 TABLET ORAL NEEDED EVERY 4 HOURS Benazepril Hydrochloride 20MG Oral Tablet 06/24/2022 Unknown ORAL TWICE A DAY 20 MILLIGRAMS 919500 RxNorm TAKE 20 MILLIGRAMS ORAL TWICE A DAY Eliquis 5MG Oral Tablet 06/24/2022 Unknown ORAL TWICE A DAY 5 MILLIGRAMS 0313800 RxNorm TAKE 5 MILLIGRAMS ORAL TWICE A DAY Fenofibrate 145MG Oral Tablet 06/24/2022 Unknown ORAL ONCE A DAY 145 MILLIGRAMS 940694 RxNorm TAKE 145 MILLIGRAMS ORAL ONCE A DAY Myrbetriq 25MG Oral Tablet, Extended Release 06/24/2022 Unknown ORAL ONCE A DAY 25 MILLIGRAMS 6278229 RxNorm TAKE 25 MILLIGRAMS ORAL ONCE A DAY Tamsulosin HCl 0.4MG Oral Capsule 06/24/2022 Unknown ORAL AT BEDTIME 0.4 MILLIGRAMS 831400 RxNorm TAKE 0.4 MILLIGRAMS ORAL AT BEDTIME [...] Code System No Known Allergies Moderate Active [id number] SN OMED-CT Plan of Treatment COVID-19 Drive Thru Screen 06/16/2020 COVID-19 Antibody Therapy Infusion 03/14 Colonoscopy 06/24/2022 Colonoscopy 08/02/2024 Kidney & Bladder (20073) 02/13/2025 Encounters Encounter Diagnosis Start Date Code Code Sys tem Other abnormalities of gait and mobility 12/13/2024 SNOMED-CT Personal Care Team Section Performer Name Performer Role Active Date Inactive CHAN Garnica PCP - Primary care physician 2022-04-20
--- OUTSIDE RECORDS SUMMARY | 2025-02-28 11:15 | XMS_ITS ---
Author Organization Unknown Address [address] [place] [phone] Phone Care Team Providers Care Child Care Attendant School Name Role Phone GUERO CAMEJO PMHNP Attending Unavailable SUE Belle Primary Unavailable Immunization [...] mcg/0.5 mL 05/06/2024 Completed 312 CVX Results COMPREHENSIVE METABOLIC PANE L - Collect Date/Time: 02/06/2024 07:10 [facility] ID: [id number] [address] [place], [place], [phone] LOINC: 38929-1 Test Value Unit Reference Range Code Code System Flag FASTING NO BUN 21 mg/dL L=7 H=20 3094-0 LOINC H CREATININE 1.20 mg/dL L=0.66 H=1.25 2160-0 LOINC GLUCOSE 94 mg/dL L=74 H=106 2345-7 LOINC SODIUM 140 mmol/L L=132 H=144 2951-2 LOINC POTASSIUM 4.1 mmol/L L=3.5 H=5.1 2823-3 LOINC CHLORIDE 108 mmol/L L=98 H=107 2075-0 LOINC H CO2 28.0 mmol/L L=22.0 H=30.0 2028-9 LOINC ANION GAP 8 L=10 H=20 97740-2 LOINC L OSMOLALITY 293 mOs/kG L=280 H=296 21992-8 LOINC BUN/CREAT 17.5 3097-3 LOINC CALCIUM 9.4 mg/dL L=8.3 H=10.5 66668-5 LOINC AST 27 U/L L=15 H=46 1920-8 LOINC ALT 26 U/L L=9 H=72 1742-6 LOINC ALKALINE PHOS 49 U/L L=38 H=126 6768-6 LOINC TOTAL BILI 0.4 mg/dL L=0.2 H=1.3 1975-2 LOINC ALBUMIN 4.1 G/dL L=3.5 H=5.0 1751-7 LOINC TOTAL PROTEIN 6.9 g/L L=6.3 H=8.2 2885-2 LOINC A/G RATIO 1.5 36922-6 LOINC AGE 63 97706-4 LOINC eGFR NON-AFR 65 ml/min eGFR AFR AMER 79 ml/min LIPID PANEL - Collect Date/T lili: 02/06/2024 07:10 [facility] ID: [id number] [place], [place], [phone] LOINC: 04105-8 Test Value Unit Reference Range Code Code System Flag FASTING NO CHOLESTEROL 151 mg/dL L=0 H=200 2092-3 LOINC TRIGLYCERIDE 134 mg/dL L=0 H=150 2570-8 LOINC HDL 45 mg/dL L=40 H=60 9 LOINC LDL 74 mg/dL 2088-08 LOINC HGB A1C -GLYCOHEMOGLOBIN - C ollect Date/Time: 02/06/2024 07:10 [facility] ID: [id number] [place] [address], [phone] LOINC: 4548-4 Test Value Unit Reference Range Code Code System Flag HGBA1C 5.5 % 4548-4 LOINC CBC W/ DIFF - Collect Date/T lili: 02/06/2024 07:10 [facility] ID: [id number] [address] [place], [place], [phone] LOINC: 75926-6 Test Value Unit Reference Range Code Code System Flag WBC 9.5 10^3uL L=4.8 H=10.8 RBC 5.23 10^6uL L=4.60 H=6.20 HEMOGLOBIN 14.9 g/dL L=14.0 H=18.0 718-7 LOINC HEMATOCRIT 45.9 VOL% L=42.0 H=52.0 4544-3 LOINC MCV 87.8 fL L=80.0 H=94.0 MCH 28.5 pg L=27.0 H=32.0 MCHC 32.5 g/dL L=32.0 H=36.0 PLATELETS 296 10^3uL L=100 H=400 94918-6 LOINC RDW 13.9 % L=11.7 H=15.5 %GRAN 57.1 % L=40.0 H=70.0 30716-1 LOINC %LYMPH 30.1 % L=20.0 H=45.0 736-9 LOINC %MONO 6.7 % L=2.0 H=10.0 99152-9 LOINC %EOS 3.7 % L=0.0 H=6.0 713-8 LOINC %BASO 1.0 % L=0.0 H=3.0 706-2 LOINC #NEUT 5.4 10^3uL L=1.9 H=7.6 02881-5 LOINC #LYMPH 2.9 10^3uL L=0.9 H=4.9 98395-8 LOINC #MONO 0.6 10^3uL L=0.1 H=0.9 57621-8 LOINC #EOS 0.4 10^3uL L=0.0 H=0.6 712-0 LOINC #BASO 0.10 10^3uL L=0.00 H=0.10 50609-1 LOINC #IM GRANS 0.1 10^3uL L=0.0 H=7.0 80820-3 LOINC %IM GRANS 1.4 % L=0.0 H=5.0 16100-0 LOINC %NRB 0.0 L=0.0 H=0.2 52914-8 LOINC #NRB 0.000 L=0.000 H=0.012 89613-1 LOINC MANUAL DIFF NOT INDICATED RBC MORPH NOT INDICATED Social History Type Status Start Date End Date Code Code Syst em Smoking History Never smoker (Never Smoked) 437193567 SNOMED CT Sex Male Sexual Orientation Straight or Heterosexual 25429389 SNOMED CT Gender Identity Male [id number] [address] Medications Medication Start Date End Date Route Frequency Dose Code Code System Medication Instructions Home Meds Acetaminophen 325MG Oral Tablet 06/24/2022 Unknown ORAL NEEDED EVERY 4 HOURS 2 TABLET 279566 RxNorm TAKE 2 TABLET ORAL NEEDED EVERY 4 HOURS Benazepril Hydrochloride 20MG Oral Tablet 06/24/2022 Unknown ORAL TWICE A DAY 20 MILLIGRAMS 116845 RxNorm TAKE 20 MILLIGRAMS ORAL TWICE A DAY Eliquis 5MG Oral Tablet 06/24/2022 Unknown ORAL TWICE A DAY 5 MILLIGRAMS 9960299 RxNorm TAKE 5 MILLIGRAMS ORAL TWICE A DAY Fenofibrate 145MG Oral Tablet 06/24/2022 Unknown ORAL ONCE A DAY 145 MILLIGRAMS 718691 RxNorm TAKE 145 MILLIGRAMS ORAL ONCE A DAY Myrbetriq 25MG Oral Tablet, Extended Release 06/24/2022 Unknown ORAL ONCE A DAY 25 MILLIGRAMS 9303958 RxNorm TAKE 25 MILLIGRAMS ORAL ONCE A DAY Tamsulosin HCl 0.4MG Oral Capsule 06/24/2022 Unknown ORAL AT BEDTIME 0.4 MILLIGRAMS 928152 RxNorm TAKE 0.4 MILLIGRAMS ORAL AT BEDTIME [...] Code System No Known Allergies Moderate Active 879932950 SN OMED-CT Plan of Treatment COVID-19 Drive Thru Screen 06/16/2020 COVID-19 Antibody Therapy Infusion 03/14 Colonoscopy 06/24/2022 Colonoscopy 08/02/2024 Kidney & Bladder (14388) 02/13/2025 Encounters Encounter Diagnosis Start Date Code Code Sys tem Long-term current use of drug therapy 02/06/2024 710 [id number] SNOMED-CT Personal Care Team Section Performer Name Performer Role Active Date Inactive CHAN Garnica PCP - Primary care physician 2022-04-20
--- OUTSIDE RECORDS SUMMARY | 2025-02-28 11:15 | XMS_ITS ---
Author Organization Unknown Address [address] [place] [phone] Phone Care Team Providers Care Vault Installer Name Role Phone SUE Belle Attending Unavailable Immunization Immunization Date Status Additional Notes [...] mcg/0.5 mL 05/06/2024 Completed 312 CVX Results 4 PLEX RESPIRATORY COVID FLU RSV PCR - Collect Date/Time: 09/19/2024 09:30 [facility] ID: [id number] [address] [place], [place], [phone] LOINC: 97488-8 Test Value Unit Reference Range Code Code System Flag SARS CoV2 PCR NEGATIVE FLU A PCR POSITIVE A FLU B PCR NEGATIVE RSV PCR NEGATIVE SEND TO THE [facility]? YES Social History Type Status Start Date End Date Code Code Syst em Smoking History Never smoker (Never Smoked) 547468064 SNOMED CT Sex Male Sexual Orientation Straight or Heterosexual 46315576 SNOMED CT Gender Identity Male [id number] [address] Medications Medication Start Date End Date Route Frequency Dose Code Code System Medication Instructions Home Meds Acetaminophen 325MG Oral Tablet 06/24/2022 Unknown ORAL NEEDED EVERY 4 HOURS 2 TABLET 333525 RxNorm TAKE 2 TABLET ORAL NEEDED EVERY 4 HOURS Benazepril Hydrochloride 20MG Oral Tablet 06/24/2022 Unknown ORAL TWICE A DAY 20 MILLIGRAMS 613886 RxNorm TAKE 20 MILLIGRAMS ORAL TWICE A DAY Eliquis 5MG Oral Tablet 06/24/2022 Unknown ORAL TWICE A DAY 5 MILLIGRAMS 1642612 RxNorm TAKE 5 MILLIGRAMS ORAL TWICE A DAY Fenofibrate 145MG Oral Tablet 06/24/2022 Unknown ORAL ONCE A DAY 145 MILLIGRAMS 048352 RxNorm TAKE 145 MILLIGRAMS ORAL ONCE A DAY Myrbetriq 25MG Oral Tablet, Extended Release 06/24/2022 Unknown ORAL ONCE A DAY 25 MILLIGRAMS 5650635 RxNorm TAKE 25 MILLIGRAMS ORAL ONCE A DAY Tamsulosin HCl 0.4MG Oral Capsule 06/24/2022 Unknown ORAL AT BEDTIME 0.4 MILLIGRAMS 777541 RxNorm TAKE 0.4 MILLIGRAMS ORAL AT BEDTIME [...] Code System No Known Allergies Moderate Active 843520931 SN OMED-CT Plan of Treatment COVID-19 Drive Thru Screen 06/16/2020 COVID-19 Antibody Therapy Infusion 03/14 Colonoscopy 06/24/2022 Colonoscopy 08/02/2024 US Kidney & Bladder (63508) 02/13/2025 Personal Care Team Section Performer Name Performer Role Active Date Inactive CHAN Garnica PCP - Primary care physician 2022-04-20
--- OUTSIDE RECORDS SUMMARY | 2025-02-28 11:15 | XMS_ITS ---
Author Organization Unknown Address [address] [place] [phone] Phone Care Team Providers Care Charge Master Analyst Name Role Phone DK MORA Attending Unavailable SUE Belle Primary Unavailable Immunization [...] mcg/0.5 mL 05/06/2024 Completed 312 CVX Results URINALYSIS w/Microscopy/C&S if indicated - Collect Date/Time: 01/10/2025 12:55 [facility] ID: [id number] [place], [place], [phone] LOINC: 51957-0 Test Value Unit Reference Range Code Code System Flag UR SOURCE STRAIGHT CATH 98801-9 LOINC COLOR STRAW YELLOW 5778-6 LOINC CLARITY SL CLOUDY CLEAR 83714-7 LOINC SPEC GRAVITY 1.010 1.000-1.030 5811-5 LOINC PH 7.0 5.0 - 6.5 5803-2 LOINC LEUK EST 1+ NEGATIVE 5799-2 LOINC A NITRATE NEGATIVE NEGATIVE PROTEIN NEGATIVE NEGATIVE 5804-0 LOINC GLUCOSE NEGATIVE NEGATIVE 24660-1 LOINC KETONES NEGATIVE NEGATIVE 89469-8 LOINC UROBILINOGEN 0.2 0.2 - 1.0 5818-0 LOINC BILIRUBIN NEGATIVE NEGATIVE 28625-0 LOINC BLOOD 2+ NEGATIVE 96992-0 LOINC WBC 2-5 0 - 2 73981-3 LOINC RBC 5-10 0 - 2 89107-3 LOINC A SQ EPITHELIAL RARE RARE-FEW BACTERIA NONE SEEN NONE SEEN 62621-2 LOINC MUCUS NONE SEEN NONE SEEN 8247-9 LOINC YEAST NOT PRESENT NOT PRESENT 34796-6 LOINC TRICHOMONAS NOT PRESENT NOT PRESENT 23774-2 LOINC SPERMATOZOA NOT PRESENT NOT PRESENT 11851-2 LOINC CASTS NOT PRESENT 43685-0 LOINC CRYSTALS NOT PRESENT 67343-5 LOINC CULTURE? NO 8251-1 LOINC DIAGNOSIS N/A CBC W/ DIFF - Collect Date/T lili: 01/10/2025 11:00 [facility] ID: [id number] [place], [place], [phone] LOINC: 48258-5 Test Value Unit Reference Range Code Code System Flag WBC 8.5 10^3uL L=4.8 H=10.8 RBC 4.69 10^6uL L=4.60 H=6.20 HEMOGLOBIN 12.3 g/dL L=14.0 H=18.0 718-7 LOINC L HEMATOCRIT 38.9 VOL% L=42.0 H=52.0 4544-3 LOINC L MCV 82.9 fL L=80.0 H=94.0 MCH 26.2 pg L=27.0 H=32.0 L MCHC 31.6 g/dL L=32.0 H=36.0 L PLATELETS 192 10^3uL L=100 H=400 12911-2 LOINC RDW 16.1 % L=11.7 H=15.5 H %GRAN 75.7 % L=40.0 H=70.0 81976-7 LOINC H %LYMPH 12.4 % L=20.0 H=45.0 736-9 LOINC L %MONO 8.4 % L=2.0 H=10.0 59392-6 LOINC %EOS 2.3 % L=0.0 H=6.0 713-8 LOINC %BASO 0.8 % L=0.0 H=3.0 706-2 LOINC #NEUT 6.5 10^3uL L=1.9 H=7.6 05479-8 LOINC #LYMPH 1.1 10^3uL L=0.9 H=4.9 15821-6 LOINC #MONO 0.7 10^3uL L=0.1 H=0.9 16514-1 LOINC #EOS 0.2 10^3uL L=0.0 H=0.6 712-0 LOINC #BASO 0.07 10^3uL L=0.00 H=0.10 41176-1 LOINC #IM GRANS 0.0 10^3uL L=0.0 H=7.0 33719-8 LOINC %IM GRANS 0.4 % L=0.0 H=5.0 37498-0 LOINC %NRB 0.0 L=0.0 H=0.2 42562-8 LOINC #NRB 0.000 L=0.000 H=0.012 53982-6 LOINC MANUAL DIFF NOT INDICATED RBC MORPH NOT INDICATED COMPREHENSIVE METABOLIC PANE L - Collect Date/Time: 01/10/2025 11:00 [facility] ID: [id number] [place], [place], [phone] LOINC: 88094-2 Test Value Unit Reference Range Code Code System Flag FASTING UNKNOWN BUN 15 mg/dL L=7 H=20 3094-0 LOINC CREATININE 0.90 mg/dL L=0.66 H=1.25 2160-0 LOINC GLUCOSE 93 mg/dL L=74 H=106 2345-7 LOINC SODIUM 141 mmol/L L=132 H=144 2951-2 LOINC POTASSIUM 3.9 mmol/L L=3.5 H=5.1 2823-3 LOINC CHLORIDE 107 mmol/L L=98 H=107 2075-0 LOINC CO2 30.0 mmol/L L=22.0 H=30.0 2028-9 LOINC ANION GAP 8 L=10 H=20 04575-4 LOINC L OSMOLALITY 293 mOs/kG L=280 H=296 10464-6 LOINC BUN/CREAT 16.7 3097-3 LOINC CALCIUM 9.0 mg/dL L=8.3 H=10.5 44325-7 LOINC AST 34 U/L L=15 H=46 1920-8 LOINC ALT 23 U/L L=9 H=72 1742-6 LOINC ALKALINE PHOS 52 U/L L=38 H=126 6768-6 LOINC TOTAL BILI 0.3 mg/dL L=0.2 H=1.3 1975-2 LOINC ALBUMIN 3.6 G/dL L=3.5 H=5.0 1751-7 LOINC TOTAL PROTEIN 6.7 g/L L=6.3 H=8.2 2885-2 LOINC A/G RATIO 1.2 67132-1 LOINC AGE 64 90101-8 LOINC eGFR NON-AFR 90 ml/min eGFR AFR AMER 109 ml/min TROPONIN LEVEL - Collect Issa e/Time: 01/10/2025 11:00 [facility] ID: [id number] [place], [place], [phone] LOINC: 76003-6 Test Value Unit Reference Range Code Code System Flag TROPONIN < 0.012 ng/mL L=0.000 H=0.033 95379-[address] BRAIN WO CONTRAST - Compl eted: 01/10/2025 11:33 LOINC: \TM00\\12PI\\DRAo\\BM09\ \MRHo\ [facility] [address] [place] [address] ---------NAME--------- NUMBER SEX AGE ADMIT DISC. XRAY# F/C TYPE JOSE MACDONALD [id number] M 64 01/10/25 78370 E.R. DATE OF : 1960 M/R# [id number] #: [id number] ED-31 \MRx\ LOCATION: TRANSCRIBED: 01/10/25 11:46 CT BRAIN WO CONTRAST 30366 COMPLETED:01/10/25 11:33 [facility] 65702 Altered Mental State PHYSICIAN: BERRY R A D I O L O G Y R E P O R T CLINICAL INFORMATION: 64 years old, Male; Altered Mental State. TECHNIQUE: Axial imaging was obtained through the brain without contrast. Coronal and sagittal reformatted images were obtained, reviewed, and stored. Images were reviewed in brain and bone windows. All CT scans at this medical facility are performed using dose modulation techniques as appropriate to a performed exam including the following: Automated exposure control was utilized; adjustment of the MA and/or KV according to patient size; and use of iterative reconstruction technique. CTDIvol = 53.54 mGy DLP = 1037 mGy-cm COMPARISON: None FINDINGS: There is no acute intracranial hemorrhage. No mass or midline shift. Focal lucency in the right cerebellar hemisphere, likely chronic lacunar infarct. Extra-axial CSF collection, likely arachnoid cyst, along the anterior aspect of the left middle cranial fossa measuring up to 1.6 cm in AP dimension, 2.1 cm in transverse dimension, and 2.0 cm in craniocaudal dimension, with mass effect on the anterior aspect of the left temporal lobe. The ventricles and sulci are within normal limits in size for age. Basal cisterns are patent. The calvarium is unremarkable. Paranasal sinuses and mastoid air cells are clear. IMPRESSION: 1. No CT evidence of acute intracranial abnormality. 2. Left middle cranial fossa arachnoid cyst. 3. Additional nonacute findings as described above. ARY MANAGER \ITLo\ \UNDo\ \UNDx\ \ITLx\ Reviewed and Electronically Signed by: Cuong Johnson DO Signed Date: 01/10/25 11:46 Social History Type Status Start Date End Date Code Code Syst em Smoking History Never smoker (Never Smoked) 190584204 SNOMED CT Sex Male Sexual Orientation Straight or Heterosexual 71473774 SNOMED CT Gender Identity Male 72083080174949 [address] Medications Medication Start Date End Date Route Frequency Dose Code Code System Medication Instructions Home Meds Acetaminophen 325MG Oral Tablet 06/24/2022 Unknown ORAL NEEDED EVERY 4 HOURS 2 TABLET 235437 RxNorm TAKE 2 TABLET ORAL NEEDED EVERY 4 HOURS Benazepril Hydrochloride 20MG Oral Tablet 06/24/2022 Unknown ORAL TWICE A DAY 20 MILLIGRAMS 304188 RxNorm TAKE 20 MILLIGRAMS ORAL TWICE A DAY Eliquis 5MG Oral Tablet 06/24/2022 Unknown ORAL TWICE A DAY 5 MILLIGRAMS 3646623 RxNorm TAKE 5 MILLIGRAMS ORAL TWICE A DAY Fenofibrate 145MG Oral Tablet 06/24/2022 Unknown ORAL ONCE A DAY 145 MILLIGRAMS 152227 RxNorm TAKE 145 MILLIGRAMS ORAL ONCE A DAY Myrbetriq 25MG Oral Tablet, Extended Release 06/24/2022 Unknown ORAL ONCE A DAY 25 MILLIGRAMS 3761137 RxNorm TAKE 25 MILLIGRAMS ORAL ONCE A DAY Tamsulosin HCl 0.4MG Oral Capsule 06/24/2022 Unknown ORAL AT BEDTIME 0.4 MILLIGRAMS 250813 RxNorm TAKE 0.4 MILLIGRAMS ORAL AT BEDTIME [...] Code System No Known Allergies Moderate Active 124969628 SN OMED-CT Plan of Treatment COVID-19 Drive Thru Screen 06/16/2020 COVID-19 Antibody Therapy Infusion 03/14 Colonoscopy 06/24/2022 Colonoscopy 08/02/2024 Kidney & Bladder (75449) 02/13/2025 Encounters Encounter Diagnosis Start Date Code Code Sys tem Weakness 01/10/2025 SNOMED-CT Personal Care Team Section Performer Name Performer Role Active Date Inactive CHAN Garnica PCP - Primary care physician 2022-04-20 Imaging Narrative Notes [facility] 01/10/2025 11:[address] [address] ---------NAME--------- NUMBER SEX AGE ADMIT DISC. XRAY# F/C TYPE JOSE MACDONALD [id number] M 64 01/10/25 09995 MB E.R. DATE OF : 1960 M/R# [id number] #: [id number] ED-31 LOCATION: TRANSCRIBED: 01/10/25 11:46 CT BRAIN WO CONTRAST 25581 COMPLETED:01/10/25 11:33 [facility] 04644 Altered Mental State PHYSICIAN: BERRY RADIOLOGY REPORT CLINICAL INFORMATION: 64 years old, Male; Altered Mental State. TECHNIQUE: Axial imaging was obtained through the brain without contrast. Coronal and sagittal reformatted images were obtained, reviewed, and stored. Images were reviewed in brain and bone windows. All CT scans at this medical facility are performed using dose modulation techniques as appropriate to a performed exam including the following: Automated exposure control was utilized; adjustment of the MA and/or KV according to patient size; and use of iterative reconstruction technique. CTDIvol = 53.54 mGy DLP = 1037 mGy-cm COMPARISON: None FINDINGS: There is no acute intracranial hemorrhage. No mass or midline shift. Focal lucency in the right cerebellar hemisphere, likely chronic lacunar infarct. Extra-axial CSF collection, likely arachnoid cyst, along the anterior aspect of the left middle cranial fossa measuring up to 1.6 cm in AP dimension, 2.1 cm in transverse dimension, and 2.0 cm in craniocaudal dimension, with mass effect on the anterior aspect of the left temporal lobe. The ventricles and sulci are within normal limits in size for age. Basal cisterns are patent. The calvarium is unremarkable. Paranasal sinuses and mastoid air cells are clear. IMPRESSION: 1. No CT evidence of acute intracranial abnormality. 2. Left middle cranial fossa arachnoid cyst. 3. Additional nonacute findings as described above. ARY MANAGER Reviewed and Electronically Signed by: Cuong Johnson DO Signed Date: 01/10/25 11:46
--- OUTSIDE RECORDS SUMMARY | 2025-02-28 11:15 | XMS_ITS ---
Author Organization Unknown Address [address] [place] [phone] Phone Care Team Providers Care Store Manager Name Role Phone INGRID DE SANTIAGOES Attending Unavailable SUE Belle Primary Unavailable Immunization [...] mcg/0.5 mL 05/06/2024 Completed 312 CVX Results US KIDNEY AND BLADDER - Comp leted: 02/13/2025 09:22 LOINC: \TM00\\12PI\\DRAo\\BM09\ \MRHo\ [address] [address] ---------NAME--------- NUMBER SEX AGE ADMIT DISC. XRAY# F/C TYPE JOSE MACDONALD [id number] M 64 02/13/25 02/13/25 88420 MB O/P DATE OF : 1960 M/R# [id number] PH#: [phone] RM \MRHx\ LOCATION: TRANSCRIBED: 02/13/25 10:23 US KIDNEY AND BLADDER 10761 COMPLETED:02/13/25 9:22 APC [id number] {REASON-US KID/BLADDR URINARY TRACT INFECTION PHYSICIAN: INGRID AGN R A D I O L O G Y R E P O R T INDICATION: REASON-US KID/BLADDR URINARY TRACT INFECTION TECHNIQUE: Multiple real-time sonographic images of the kidneys and bladder were obtained. COMPARISON: None FINDINGS: The right kidney measures 12 cm in length, which is normal in size. There is normal echogenicity of the right kidney. No hydronephrosis. The left kidney measures 12 cm in length, which is normal in size. There is normal echogenicity of the left kidney. No hydronephrosis. No large intraluminal masses are seen in the bladder. IMPRESSION: 1. Normal sonographic appearance of the kidneys. No hydronephrosis. S PROMOTION OFFICER \ITLo\ \UNDo\ \UNDx\ \ITLx\ Reviewed and Electronically Signed by: Delmar Madrid MD Signed Date: 02/13/25 10:23 Social History Type Status Start Date End Date Code Code Syst em Smoking History Never smoker (Never Smoked) 173948913 SNOMED CT Sex Male Sexual Orientation Straight or Heterosexual 44598303 SNOMED CT Gender Identity Male [id number] [address] Medications Medication Start Date End Date Route Frequency Dose Code Code System Medication Instructions Home Meds Acetaminophen 325MG Oral Tablet 06/24/2022 Unknown ORAL NEEDED EVERY 4 HOURS 2 TABLET 025727 RxNorm TAKE 2 TABLET ORAL NEEDED EVERY 4 HOURS Benazepril Hydrochloride 20MG Oral Tablet 06/24/2022 Unknown ORAL TWICE A DAY 20 MILLIGRAMS 332121 RxNorm TAKE 20 MILLIGRAMS ORAL TWICE A DAY Eliquis 5MG Oral Tablet 06/24/2022 Unknown ORAL TWICE A DAY 5 MILLIGRAMS 9645713 RxNorm TAKE 5 MILLIGRAMS ORAL TWICE A DAY Fenofibrate 145MG Oral Tablet 06/24/2022 Unknown ORAL ONCE A DAY 145 MILLIGRAMS 365151 RxNorm TAKE 145 MILLIGRAMS ORAL ONCE A DAY Myrbetriq 25MG Oral Tablet, Extended Release 06/24/2022 Unknown ORAL ONCE A DAY 25 MILLIGRAMS 4566141 RxNorm TAKE 25 MILLIGRAMS ORAL ONCE A DAY Tamsulosin HCl 0.4MG Oral Capsule 06/24/2022 Unknown ORAL AT BEDTIME 0.4 MILLIGRAMS 506700 RxNorm TAKE 0.4 MILLIGRAMS ORAL AT BEDTIME [...] Code System No Known Allergies Moderate Active 180478554 SN OMED-CT Plan of Treatment COVID-19 Drive Thru Screen 06/16/2020 COVID-19 Antibody Therapy Infusion 03/14 Colonoscopy 06/24/2022 Colonoscopy 08/02/2024 US Kidney & Bladder (98743) 02/13/2025 Encounters Encounter Diagnosis Start Date Code Code Sys tem Other abnormalities of gait and mobility 02/13/2025 SNOMED-CT Personal Care Team Section Performer Name Performer Role Active Date Inactive CHAN Garnica PCP - Primary care physician 2022-04-20 Imaging Narrative Notes [facility] 02/13/2025 10:[address] [address] ---------NAME--------- NUMBER SEX AGE ADMIT DISC. XRAY# F/C TYPE JOSE KIERRA RENAE [id number] M 64 02/13/25 02/13/25 46437 MB O/P DATE OF : 1960 M/R# [id number] #: [id number] RM LOCATION: TRANSCRIBED: 02/13/25 10:23 US KIDNEY AND BLADDER 31872 COMPLETED:02/13/25 9:22 APC [id number] {REASON-US KID/BLADDR URINARY TRACT INFECTION PHYSICIAN: INGRID AGN RADIOLOGY REPORT INDICATION: REASON-US KID/BLADDR URINARY TRACT INFECTION TECHNIQUE: Multiple real-time sonographic images of the kidneys and bladder were obtained. COMPARISON: None FINDINGS: The right kidney measures 12 cm in length, which is normal in size. There is normal echogenicity of the right kidney. No hydronephrosis. The left kidney measures 12 cm in length, which is normal in size. There is normal echogenicity of the left kidney. No hydronephrosis. No large intraluminal masses are seen in the bladder. IMPRESSION: 1. Normal sonographic appearance of the kidneys. No hydronephrosis. S PROMOTION OFFICER Reviewed and Electronically Signed by: Delmar Madrid MD Signed Date: 02/13/25 10:23
--- OUTSIDE RECORDS SUMMARY | 2025-02-28 11:15 | XMS_ITS | Clinical Summary ---
Author Organization [facility] Address [address] [place] [id number] Care Team Providers Care Supervisor Display Fabrication Name Role Phone Corie Knox MD, Brian L MD Primary Care Provider [phone] Allergies No known active allergies Medications melatonin 10 MG tablet Take 1 tablet (10 mg total) by mouth nightly at bedtime. Active fluticasone propionate (FLONASE) 50 MCG/ACT nasal spray 1 spray by Each Nostril route daily. Active diclofenac sodium (VOLTAREN) 1 % gel Apply 2 g topically 2 (two) times daily as needed (hip pain). Active Active Problems Problem Noted Date Diagnosed Date GI bleed 08/08/2024 Acute blood loss anemia (ABLA) 08/08/2024 Melena 08/08/2024 Syncope 06/27/2020 Social History Tobacco Use Types Packs/Day Years Used Date Smoking Tobacco: Never Smokeless Tobacco: Never [facility] Utilities Answer Date Recorded In the past 12 months has [facility], gas, oil, or water [employer] threatened to shut off services in your home? No 08/08/2024 Humiliation, Afraid, Rape, and Kick questionnair e Answer Date Recorded Within the last year, have y ou been afraid of your partner or ex-partner? No 08/08/2024 Within the last year, have y ou been humiliated or emotionally abused in other ways by your partner or ex-partner? No Within the last year, have y ou been kicked, hit, slapped, or otherwise physically hurt by your partner or ex-partner? No 08/08/2024 Within the last year, have y ou been raped or forced to have any kind of sexual activity by your partner or ex-partner? No 08/08/2024 Overall Financial Resource Strain (CARDIA) Answe r Date Recorded How hard is it for you to pa y for the very basics like food, housing, medical care, and heating? Not hard at all 08/08/2024 Hunger Vital Sign Answer Date Recorded Within the past 12 months, y ou worried that your food would run out before you got the money to buy more. Never true 08/08/20 24 Within the past 12 months, t he food you bought just didn't last and you didn't have money to get more. Never true 08/08/2024 PRAPARE - Transportation Answer Date Re corded In the past 12 months, has l ack of transportation kept you from medical appointments or from getting medications? No 07/15 In the past 12 months, has l ack of transportation kept you from meetings, work, or from getting things needed for daily living? No 08/08/2024 Housing Stability Vital Sign Answer Issa e Recorded In the last 12 months, was t here a time when you were not able to pay the mortgage or rent on time? No 08/08/2024 In the past 12 months, how m any times have you moved where you were living? 0 08/08/2024 At any time in the past 12 m [facility], were you homeless or living in a penitentiary (including now)? No 08/08/2024 Sex and Gender Information Value Date Recorded Sex Assigned at Male 08/27/2024 11:46 AM [employer]IVESTOCK NUTRITION TERRITORY MANAGER Legal Sex Male 2:39 PM [employer]IVEST[employer] NUTRITION TERRITORY MANAGER Gender Identity Male 08/27/2024 11:46 AM [employer] NUTRITION TERRITORY MANAGER Sexual Orientation Straight 08/27/2024 11 :46 AM [employer]ST[employer] NUTRITION TERRITORY MANAGER Last Filed Vital Signs Vital Sign Reading Time Taken Comments Blood Pressure 112/59 10/05/2024 11:35 AM LIVESTOCK NUTRITION TERRITORY MANAGER Pulse 75 10/05/2024 11:35 AM LIVESTOCK NUTRITION TERRITORY MANAGER Temperature 36.4 C (97.6 F) 10/05/2024 9:01 AM LIVESTOCK NUTRITION TERRITORY MANAGER Respiratory Rate 15 10/05/2024 11:35 AM LIVESTOCK NUTRITION TERRITORY MANAGER Oxygen Saturation 98% 10/05/2024 11:35 AM LIVESTOCK NUTRITION TERRITORY MANAGER Inhaled Oxygen Concentration - - Weight 97.6 kg (215 lb 2.7 oz) 10/05/2024 9:01 A M [employer] NUTRITION TERRITORY MANAGER Height 175.3 cm (5' 9) 10/05/2024 9:01 AM [employer]STOCK NUTRITION TERRITORY MANAGER Body Mass Index 31.77 10/05/2024 9:01 AM LIVESTOCK NUTRITION TERRITORY MANAGER Plan of Treatment Health Maintenance Due Date Last Done Comments Colorectal Cancer Screening Colonoscopy (10 Years) 1960 Hepatitis C 02/14/1978 Pneumococcal Vaccine: 50+ Years (1 of 1 - PCV) 02/14/2010 Zoster Vaccines (1 of 2) 02/14/2010 RSV Immunization or 60+ Years (1 - Risk 60-74 years 1-dose series) 2020 COVID-19 Vaccine ( season) 2025 05/06/2024, 10/27/2022, 05/25/2021, Additional history exists DTaP, Tdap and Td Vaccines (2 - Td or Tdap) 02/11/2032 02/10/2022 Meningococcal B Vaccine Aged Out No l onger eligible based on patient's age to complete this topic Meningococcal Vaccine Aged Out No romero hernan eligible based on patient's age to complete this topic RSV Immunizations Under 20 Months Aged Out No longer eligible based on patient's age to complete this topic Goals Goal Patient Goal Type Associated Problems Recent Progress Patient-Stated? Author Discharge Patient/family verbalizes understanding regarding the need for SNF placement Lifestyle Yes Sheree Cueva, caustic preparer - family caregiver with be involved in care transitions and discharge planning Lifestyle Yes Fransisco Cueva, RN Insurance MEDICARE MEDICAID Advance Directives Documents on File Type Date Recorded Patient Drain Cleaner Expl anation Advance Directives and Living Will 10/07/2024 11:48 AM 01/12/22 POLST DNR (Do Not Resuscitate) Documentation 09/30/2024 10:51 AM Advance Directives and Living Will 09/13/2024 11:17 AM 01/12/2022 POLST Advance Directives and Living Will 09/13/2024 11:17 AM 03/16/2021 POA FOR HEALTH CARE Advance Directives and Living Will 09/04/2024 11:44 AM 03/16/2021 POA FOR HEALTH CARE Advance Directives and Living Will 09/04/2024 11:44 AM 01/14/2022 POLST * Full Code (Latest Code Status on File) Date Activated Date Inactivated Comments 08/08/2024 6:51 PM 08/31/2024 2:33 PM * Full Code Date Activated Date Inactivated Comments 06/27/2020 1:43 PM 07/03/2020 8:00 PM Care Teams Supervisor Display Fabrication Relationship Specialty Start [place] [id number] [place] [id number] PCP - General FAMILY PRACTICE 09/16/24 Corie Knox MD Consulting Physician CARDIOVASCULAR DISEASE 06/19/20
--- OUTSIDE RECORDS SUMMARY | 2025-02-28 11:15 | XMS_ITS | Data Portability ---
Author Organization [facility], [address] [place] [address] Neurology ([place]) Address [address] [place] [address] Care Team Providers Care Film Library Clerk Name Role Phone CHAN ROGERS Primary Care Provider [phone] [place] Patient Designee Assessment Encounter Date Assessment Date Assessment LastModified by Organization Details LastModified Time 12/30/2024 12/30/2024 Cuong is a 64-year-old gentleman who is accompanied by a staff member from [facility] where he resides. He has a medical history of hypertension, hyperlipidemia, PE and DVT, A-fib previously on Eliquis, history of chronic NSAID use and developmental delay who had massive GI bleed resulting in hemorrhagic shock and requiring duodenotomy with pyloroplasty who is here for hospital follow-up. *GI bleeding -he had massive GI bleed resulting in hemorrhagic shock and ultimately required duodenotomy with pyloroplasty. He has been taken off NSAIDs which he should remain off of indefinitely. He Should continue esomeprazole indefinitely. He has previously been on Eliquis for history of A-fib, DVT and PE. At this time given his history of massive GI bleeding we would recommend that he take aspirin and avoid prescription anticoagulants but will leave this up to cardiology. He is clearly at high risk for recurrent GI bleeding given his history of extensive bleeding requiring surgery. He was also recently seen by neurology who would like to increase the donepezil to 10 mg twice daily. I think that this is fine. He can follow-up with our office as needed. I personally spent a total of 47 minutes on the patient on this date of service including both yvdh-uf-mqxq and pgv-eesc-po-face time excluding any separately reportable services. hey Not available 12/30/2024 15:59:08 Plan of Treatment Reminders Order Date Submit Date Provider Last Modified By Organization Details Last Modified Time Details Appointments Yocasta Laws t 10.EST 2024 10:25A M Dr. Jamil Camara Not available Not available Not available Yocasta Laws t 10.EST 2025 09:00A M Dr. Kaia Carter Not available Not available Not available Lab None record ed. Referral None record ed. Procedures None record ed. Surgeries None record ed. Imaging None record ed. Medication Orders tamsul osin 0.4 mg capsul e 2024 025 [email or web address] Not available 12/13/2024 14:08:10 Patient TargetsNo targets recorded. Patient InstructionsNo instructions recorded. Reason for Referral None Reported. Results Created Date Observation Date Name Description Value Unit Range Abnormal Flag Note LastModifiedBy Organization Detail LastModifiedTime 12/05/1908/21/2024 CT, chest + abdom en + pelvi s, w/ contr ast No observ ation record ed. [email or web address] Not Available 2024 11:42:13 12/05/19 25 08/19/2024 elect rocar diogr am, routi ne ECG, 12 leads min No observ ation record ed. [email or web address] Not Available 2024 11:43:24 12/05/19 25 08/12/2024 elect rocar diogr am, routi ne ECG, 12 leads min No observ ation record ed. [email or web address] Not Available 2024 11:44:55 12/05/19 25 08/13/2024 elect rocar diogr am, routi ne ECG, 12 leads min No observ ation record ed. [email or web address] Not Available 2024 11:45:21 02/14/20 25 02/13/2025 nancy WELCH No observ ation record ed. [facility] Scheduling [address] [place], [address], 02/24/2025 09:26:36 Result Notes None recorded. Problems Name Problem SNOMED Code Status Onset Date Resolution Date Notes Provider Name and Address Organization Details Recorded Time Blood in urine 94941025 Active 2023 Kylah Velasquez awbhupinder [facility] 4 11:01:42 Microscopic hematuria 899272957 Active 2023 Idalia Osorio [facility] 4 11:29:01 Prostate specific antigen above reference range 928151669 Active 2023 Breanne Dominguez [facility] 5 10:53:53 Urinary symptoms 634020164 Active 2023 Breanne Dominguez [facility] 5 10:53:40 Benign prostatic hyperplasia with outflow obstruction 321538897 Active 2024 Tammy Mendez, DIANELYS, CONTROL AREA OPERATOR [address] , [facility] [place], [address], [facility] 5 11:01:33 Incontinence without sensory awareness 570337468 Active 2024 Tammy Mendez APRN, CONTROL AREA OPERATOR [address] , [facility] [place], [address], [facility] 5 11:01:49 Upper gastrointestin al bleeding 06228729 Active 2024 Dasha Wick APRN, CONTROL AREA OPERATOR [address], [facility] [place], [address], [facility] 5 15:58:40 Atrial fibrillation 39281749 Active 2024 Seble Yanes [facility] 5 10:41:38 Recurrent urinary tract infection 147645178 Active 2024 Anastasiya Devries [facility] 5 11:33:03 Urinary incontinence 518900979 Active 2024 Tammy Mendez, DIANELYS, CONTROL AREA OPERATOR [address] , [facility] [place], [address], [facility] 5 18:01:11 Phimosis 972945435 Active 2024 Dasha Smith [place], [place] - [facility] 5 04:00:41 Problem Notes Documentation Provider Name and Address Organization Details Recorded Time [employer] Wel[employer] Consult Note : [facility] [address] [place] [address] Cuong Li 64yo M 1960 #[id number] 12/30/2024 Shahriar Rogers MD, Cuong Li was seen in our office today 12/30/2024, and a copy of that evaluation is enclosed. Thank you for allowing us to participate in the care of your patient. Please contact us with any questions. Sincerely, Electronically Signed by: DASHA WICK APRN, CNP, DIANELYS-SARA Encounter Reason/Date established patient 12/30/2024 - 09:45AM - [facility] Gastroenterology ([place])ProblemsReviewed Problems Upper gastrointestinal bleeding - Onset: 12/30/2024 Blood in urine - Onset: 01/09/2024 Microscopic hematuria - Onset: 01/09/2024 Benign prostatic hyperplasia with outflow obstruction - Onset: 12/13/2024 Incontinence without sensory awareness - Onset: 12/13/2024 Urinary symptoms - Onset: 01/24/2024 Prostate specific antigen above reference range - Onset: 01/22/2024 Allergies Reviewed Allergies NKDA No Known Drug Allergies (Active) OnsetDate: 01/05/2023; Medications Reviewed Medications NameDate Source [id number] take two tablets PRN04/08/24 entered Mel Kaye amiodarone 200 mg tabletTake 1 tablet(s) twice a day by oral route.12/30/24 entered Dasha Wick APRN, CNP cetirizine 10 mg capsuleTake 1 capsule(s) every day by oral route.04/08/24 entered Mel Kaye cholecalciferol (vitamin D3) 75 mcg (3,000 unit) tabletTake 1 tablet(s) every day by oral route.04/08/24 entered Mel Kaye donepeziL 10 mg tabletTake 1 tablet(s) every day by oral route in the evening.12/30/24 entered Dasha Wick APRN, CNP esomeprazole magnesium 40 mg capsule,delayed releaseTake 1 capsule(s) twice a day by oral route.12/30/24 entered Dasha Wick APRN, CNP fenofibrate nanocrystallized 145 mg tabletTake 1 tablet(s) every day by oral route.03/28/24 filled surescripts finasteride 5 mg tabletTake 1 tablet(s) every day by oral route for 90 days.04/08/24 prescribed Ryanne Tabor APRN, CNP fluticasone propionate 50 mcg/actuation nasal spray,suspensionstart started Dasha Wick APRN, SARA loperamide 2 mg tabletTake 1 tablet(s) every 6 hours by oral route as needed.12/30/24 entered Dasha Wick APRN, CNP melatonin 10 mg capsuleTake 1 capsule(s) every day by oral route at bedtime.04/08/24 entered Mel Kaye metoprolol tartrate 50 mg tabletTake 1 tablet(s) 3 times a day by oral route.12/30/24 entered Dasha Wick APRN, CNP Myrbetriq 50 mg tablet,extended releaseTake 1 tablet(s) every day by oral route for 90 days.04/08/24 prescribed Ryanne Taobr APRN, CNP risperiDONE 0.5 mg tabletTake 1 tablet(s) twice a day by oral route for 31 days.03/28/24 filled surescripts sertraline 50 mg tabletTake 1 tablet(s) every day by oral route in the evening.12/30/24 entered Dasha Wick APRN, CNP tamsulosin 0.4 mg capsuleTake 1 capsule(s) twice a day by oral route for 90 days.12/13/24 prescribed Tammy Mendez APRN, SARA traZODone 50 mg tabletTake 1 tablet(s) every day by oral route at bedtime for 31 days.03/28/24 filled surescripts Voltaren Arthritis Pain 1 % topical gelAPPLY 2 GRAMS TO THE AFFECTED AREA(S) BY TOPICAL ROUTE 4 TIMES PER DAY04/08/24 entered Mel Kaye Family HistoryFamily History not reviewed (last reviewed 01/09/2024) Social HistorySocial History not reviewed (last reviewed 01/09/2024) Surgical HistorySurgical & Procedure History not reviewed (last reviewed 01/09/2024) Additional HistoryNone recordedHistory of Present IllnessCuong is a 64-year-old gentleman who is accompanied by a staff member from [facility] where he resides. He has a medical history of hypertension, hyperlipidemia, PE and DVT, A-fib previously on Eliquis, history of chronic NSAID use and developmental delay who had massive GI bleed resulting in hemorrhagic shock and requiring duodenotomy with pyloroplasty who is here for hospital follow-up.Cuong was initially seen in the emergency room in [facility] for melena, hypotension and tachycardia. Initial hemoglobin was noted to be 7 down from a baseline of 14. CTA revealed right-sided PE and active duodenal bleeding. He was quickly transferred to [facility] by helicopter. EGD was attempted in the ICU bedside after he suffered a PEA arrest but was aborted as the entire esophagus and stomach were filled with blood precluding visualization and he was emergently rushed to the OR. He then had exploratory laparotomy for perforated duodenal ulcer with ligation of an arterial bleed. The next day he required repeat laparotomy with omental patch repair of duodenotomy, abdominal washout, placement of J-tube, JONATAN drain and wound VAC. He was able to be discharged back to his facility after an over 3-week stay. Unfortunately he was seen in the ER multiple times after his prolonged stay for dislodging of the feeding tube. This has since been removed. He is back on a mechanical soft diet.The caregiver with Cuong reports that overall he is been doing well. He is having difficulty with some memory loss. Neurology has not been wanting to increase the Donepezil but is concerned that this may cause some GI issues. He has continued to be on daily PPI. He has been taken off all NSAIDs. There are no reports of black stools or blood in the stools. No fever shakes or chills.Review of SystemsAdditionally reports:Information provided by caregiver. General: No fever. No tendency for easy bruising.Eyes: Denies scleral icterus.Pulmonary: No rapid breathing, wheezing and no cough.Genitourinary: no hematuria, urine odor, urinary frequency or urinary incontinence.Musculoskeletal: muscle weaknessNeurologic: No dizziness, lightheadedness or syncope.Psychological: No psychological complaints. No change in mood.Skin: No skin complaints. No rashes, no lesions. No pruritus. Physical ExamGeneral appearance: normal, awake and alert. Not acutely ill.Eyes: No scleral icterus.Neck: trachea midline, thyroid not enlarged.Lungs: Normal. Clear to auscultation bilaterally.Cardiovascular: RRR, no murmurs.Abdomen: bowels sounds normal. Abdomen soft and nontender.Rectal exam: deferred.Extremities: no localized swelling.Neurologic: Gait and stance were abnormal. Motor strength abnormal.Skin: warm and dry. Procedure DocumentationNone recordedAssessment/PlanMichae claudine is a 64-year-old gentleman who is accompanied by a staff member from [facility] where he resides. He has a medical history of hypertension, hyperlipidemia, PE and DVT, A-fib previously on Eliquis, history of chronic NSAID use and developmental delay who had massive GI bleed resulting in hemorrhagic shock and requiring duodenotomy with pyloroplasty who is here for hospital follow-up. *GI bleeding -he had massive GI bleed resulting in hemorrhagic shock and ultimately required duodenotomy with pyloroplasty. He has been taken off NSAIDs which he should remain off of indefinitely. He Should continue esomeprazole indefinitely. He has previously been on Eliquis for history of A-fib, DVT and PE. At this time given his history of massive GI bleeding we would recommend that he take aspirin and avoid prescription anticoagulants but will leave this up to cardiology. He is clearly at high risk for recurrent GI bleeding given his history of extensive bleeding requiring surgery. He was also recently seen by neurology who would like to increase the donepezil to 10 mg twice daily. I think that this is fine. He can follow-up with our office as needed. I personally spent a total of 47 minutes on the patient on this date of service including both pxge-vm-cbpy and wcu-xujl-pn-face time excluding any separately reportable services. 1.Gastrointestinal bleeding, qdnynU32.2: Gastrointestinal hemorrhage, unspecified Return to Office Tammy Mendez APRN, CONTROL AREA OPERATOR for Established Patient 15.EST at [address] [place] [address] Urology ([place]) on 02/20/2025 at 01:45 PM Kaia Carter MD for Established Patient 10.EST at [facility] Specialty Cardiology ([place]) on 11/21/2025 at 09:00 AM Trinidadmehdi Olivaden [facility] 01/15/2025 15:14:02 Medical Equipment None Reported. Allergies No known drug allergies Medications Name Sig Start Date Stop Date Status Note LastModified by Organization Details LastModified Time trazodone 50 mg tablet Take 1 tablet every day by oral route at bedtime for 31 days. active Not Available Not Available No t Available amiodarone 200 mg tablet Take 1 tablet twice a day by oral route. active Not Available Not Available No t Available donepezil 10 mg tablet Take 1 tablet every day by oral route in the evening. active Not Available Not Available No t Available sertraline 100 mg tablet 12/30 completed Not Available Not Available Not Available loperamide 2 mg tablet Take 1 tablet every 6 hours by oral route as needed. active Not Available Not Available No t Available aspirin 325 mg tablet,annie yed release Take 1 tablet every day by oral route for 90 days. 2024 active Not Available Not Available Not Avai lable tamsulosin 0.4 mg capsule Take 1 capsule twice a day by oral route for 90 days. 2024 active Not Available Not Available Not Avai lable esomeprazol e magnesium 40 mg capsule,del ayed release Take 1 capsule twice a day by oral route. active Not Available Not Available No t Available metoprolol tartrate 50 mg tablet Take 1 tablet 3 times a day by oral route. active Not Available Not Available No t Available benazepril 20 mg tablet 12/30 completed Not Available Not Available Not Available fluticasone propionate 50 mcg/actuati on nasal spray,suspe nsion 2024 active Not Available Not Available Not Avai lable sertraline 50 mg tablet Take 1 tablet every day by oral route in the evening. active Not Available Not Available No t Available finasteride 5 mg tablet Take 1 tablet every day by oral route for 90 days. 2023 active Not Available Not Available Not Avai lable risperidone 0.5 mg tablet Take 1 tablet twice a day by oral route for 31 days. active Not Available Not Available No t Available acetaminoph en 325mg take two tablets PRN active Not Available Not Available No t Available fenofibrate nanocrystal lized 145 mg tablet Take 1 tablet every day by oral route. active Not Available Not Available No t Available cholecalcif tyrell (vitamin D3) 75 mcg (3,000 unit) tablet Take 1 tablet every day by oral route. active Not Available Not Available No t Available cetirizine 10 mg capsule Take 1 capsule every day by oral route. active Not Available Not Available No t Available mirabegron ER 25 mg tablet,exte nded release 24 hr Take 1 tablet every day by oral route. 04/08 completed Not Available Not Available Not Available Myrbetriq 50 mg tablet,exte nded release Take 1 tablet every day by oral route for 90 days. 2024 active Not Available Not Available Not Avai lable Eliquis 5 mg tablet 12/30 completed Not Available Not Available Not Available melatonin 10 mg capsule Take 1 capsule every day by oral route at bedtime. active Not Available Not Available No t Available Voltaren Arthritis Pain 1 % topical gel APPLY 2 GRAMS TO THE AFFECTED AREA(S) BY TOPICAL ROUTE 4 TIMES PER DAY active Not Available Not Available No t Available Vitals Date Recorded Body height Heart rate Oxygen saturation Oxygen saturation in Arterial blood by Pulse oximetry Body mass index (BMI) Body weight Systolic And Diastolic Provider Name and Address Organization Details Last Updated DateTime 5 175.26 cm 56 /min 98 % 98 % 32.5 kg/m2 55168.3 2 g 124/80 mm[Hg] [facility]ray [facility] 5 11:25:21 Date Recorded Body height Body mass index (BMI) Body weight Heart rate Oxygen saturation Oxygen saturation in Arterial blood by Pulse oximetry Systolic And Diastolic Provider Name and Address Organization Details Last Updated DateTime 5 175.26 cm 32.5 kg/m2 15541.3 2 g 58 /min 99 % 99 % 120/62 mm[Hg] Maria Alejandra Cheney [facility] 5 10:39:30 Date Recorded Body height Heart rate Oxygen saturation Oxygen saturation in Arterial blood by Pulse oximetry Systolic And Diastolic Provider Name and Address Organization Details Last Updated DateTime 5 175.26 cm 53 /min 100 % 100 % 110/60 mm[Hg] Dasha Wick, CONTRACT RUNNER, CONTROL AREA OPERATOR [address] [place] [address], [address] [facility] 5 10:50:06 Date Recorded Body height Body mass index (BMI) Body weight Heart rate Oxygen saturation Oxygen saturation in Arterial blood by Pulse oximetry Systolic And Diastolic Provider Name and Address Organization Details Last Updated DateTime 5 175.26 cm 31.3 kg/m2 73326.5 8 g 66 /min 99 % 99 % 123/70 mm[Hg] Anastasiya Devries [facility] 5 10:55:08 Date Recorded Body height Body mass index (BMI) Body weight Heart rate Oxygen saturation Oxygen saturation in Arterial blood by Pulse oximetry Systolic And Diastolic Provider Name and Address Organization Details Last Updated DateTime 4 175.26 cm 35.4 kg/m2 151635. 45 g 81 /min 92 % 92 % 118/66 mm[Hg] Mel Kaye [facility] 4 11:45:55 Social History None recorded. Functional Status None recorded. Mental Status None recorded. Family History Nothing Reported. Medical History No medical history recorded. Past Encounters Encounter ID Performer Location Encounter Start Date Encounter Closed Date Diagnosis/Indication Diagnosis SNOMED-CT Code Diagnosis ICD10 Code Diagnosis Note [id number] Ryanne Tabor APRN, CONTROL AREA OPERATOR [address] [facility] ([place]) [address] [place] [address] [address] [place] [address] 01/09/2024 10:21:10 01/09/2024 11:48:58 Blood in urine 54286521 R31.9 Microscopic hematuria 19 9510038 R31.29 [id number] Ryanne Tabor APRN, CONTROL AREA OPERATOR [address] [facility] ([place]) [address] [place] [address] [address] [place] [address] 04/08/2024 11:13:52 04/08/2024 12:22:03 [id number] Dayna Carter MD [facility] Specialty Cardiolog y ([place]) [address] [place] [address] 11/22/2024 10:50:41 11/25/2024 16:31:06 [id number] Tammy Mendez APRN, CONTROL AREA OPERATOR [address] [facility] ([place]) [address] [place] [address] [place] [address] 12/13/2024 10:18:49 12/13/2024 11:45:02 Prostate specific antigen above reference range 247538321 R97.20 Benign pro static hyperplasia with outflow obstruction 654474184 N40.1 Incontinen ce without sensory awareness 858026829 N39.42 [id number] Dasha Wick, CONTRACT RUNNER, CONTROL AREA OPERATOR [facility] ([place]) [address] [facility] [place] [address] 12/30/2024 10:31:09 12/30/2024 12:40:54 Upper gastrointestinal bleeding 35955622 K92.2 [id number] Tammy Mendez APRN, CONTROL AREA OPERATOR [address] [facility] ([place]) [address] [place] [address] 01/23/2025 10:36:31 01/23/2025 13:25:28 Recurrent urinary tract infection 975261469 N39.0 Benign pro static hyperplasia with outflow obstruction 762154868 N40.1 Urinary incontinence 165 099908 R32 Phimosis 306387251 N47.1 Health Concerns Section Related Observation LastModified by Organization Detai ls LastModified Time None Recorded Concern Status LastModified by Organization Details LastModified Time None Recorded Advance Directives Directive None Recorded Payers Insurance Date Sequence Insurance Name Policy Number Policy Hyatt Covered Member ID Hyatt Member ID Guarantor Name 2025 2 [place] [employer] Cuong Li [id number] Cuong Li 2025 1 [place] Cuong Li [id number] Cuong Li Notes Date Note Type Note Provider Name and Address Organization Details Recorded Time 04/08/20 24 text/htm l , Chief Complaint: Urinary frequencyAssessment & Plan: Incontinence, BPH with LUTS-refill tamsulosin 0.4 mg daily, finasteride 5 mg daily and Myrbetriq 50 mg daily. Follow-up in 1 year or sooner if needed. PSA due in December 2024.History of Present Illness: Patient is a developmentally disabled 64-year-old gentleman that presents today for a 1 year follow-up appointment in regards to incontinence and urinary frequency. He currently takes tamsulosin 0.4 mg daily, finasteride 5 mg daily, and Myrbetriq 50 mg daily for symptoms. He continues to use 4 depends per day. He gets up 3 times a night to urinate. He denies any hematuria, dysuria, suprapubic pain or flank pain today. He is accompanied by a support person today. She denies any recent urinary tract infections. His most recent PSA was fabulous in December of this year at 0.4. We will refill his medications and see him back in 1 year or sooner if needed.Review of systems:The patient denies nausea, vomiting, shortness of breath, and chest pain.Vitals, medical problems, medications, and allergies are noted below.Physical exam:The patient is alert and oriented. In no acute distress. Skin warm and dry.Extraocular movements are intact.Head normocephalicNormal hearingNo speech defectsRespirations are deep and regular.Abdomen is soft. There is no suprapubic or flank tenderness.There is no peripheral edema.Gait is normal and without defect. Ryanne Tabor, CONTRACT RUNNER, CONTROL AREA OPERATOR [address] [place] [address], [phone], [facility] 04/09/2024 12:51:33 11/23/19 25 text/htm l Mr. Li Is here today to establish care for atrial fibrillation.Patient have a history of atrial fibrillation. He was on Eliquis. Caregiver is with him she mentioned that in July 2024 he presented to [facility]. He was diagnosed to have GI bleed. Subsequently Eliquis was discontinued. He was in the hospital for a long time and subsequently rehab now he went back to snf. Today he denied any chest pain chest tightness. He walks with a walker. He denied any shortness of breath with current level of activity. In fact his fatigue and tiredness has been improving with physical therapy.EKG from 08/13/2024: Personally reviewed shows sinus rhythm occasional supraventricular complexesEchocardiogram from 08/06: Showed normal left-ventricular ejection fraction.Assessment and plan1) atrial fibrillation-We discussed the risks of stroke associated with atrial fibrillation and risks and benefits of anticoagulation. Patient was given options of aspirin 325, warfarin, newer anticoagulation. We also discussed nonpharmacological options for the management of atrial fibrillation. Given the recent history of GI bleed, we do not recommend any anticoagulation at this time. Either aspirin or Plavix can be started if okay with gastrointestinal provider.Patient does not want any procedure. So left atrial appendage occlusion is out of question. If question comes back again then we can reach out to his brother as well.We recommend to discontinue amiodaroneContinue metoprolol for rate controlRTC in 12 monthsThank you for allowing us to participate in the care of this patient. Please do not hesitate to call us or reach out to us if there is any question or concern.Review of system:General: No feverCardiovascular: Per HPIRespiratory: No hemoptysisGI: No melenaSkin: No unusual lesions.Neurologic: No dizzinessHematology/lymph: No bleeding.Physical examination:GENERAL: no acute distress.NECK: Supple, without jugular venous distention.RESPIRATORY: No cracklesCARDIOVASCULAR: No significant murmur is present. Regular rate and rhythm.ABDOMEN: Soft, nontender, nondistended.EXTREMITIES: No edema.MUSCULOSKELETAL: No severe kyphoscoliosis.NEUROLOGIC: Alert and oriented X 3. Kaia Carter MD [facility] [address], [phone], [facility] 11/22/2024 12:03:30 12/14/19 25 text/htm l Chief Complaint: Cuong Li is a 64-year-old male who presents today for follow-up. He has a history of urinary frequency and urinary incontinence. He is on finasteride 5 mg daily, Myrbetriq 50 mg daily, and tamsulosin 0.4 mg 1 twice a day.He is developmentally disabled. He is accompanied by a staff member.PSA 0.4 January 02, 2024 History of Present Illness: Today the staff member states the patient's incontinence has gotten worse. The patient was in the hospital in July for a GI bleed and they took him off all his medications. The staff at the facility are taking him to the bathroom every 2 hours but he is still wet. Patient states he does not know when he is urinating. No dysuria no gross hematuria. He does not smoke. Review of SystemsNo nausea vomiting, shortness of breath, or chest pain Vitals, medical problems, medications, and allergies are noted below. Physical exam:Patient is alert and cooperative. In no acute distress. Skin warm and dry.Extraocular movements are intact.Head normocephalic.Normal hearingTrachea midline.Respirations deep and regular.Abdomen soft. Midline abdominal dressing clean dry and intact.Genitalia: Uncircumcised phallus. There is phimosis of the glans, however, I can retract the foreskin to expose the urethral opening. Testicles descended bilaterally.CORINE: Normal rectal sphincter tone. 40 g prostate smooth.There is no peripheral edema.Gait is normal and without defect. Assessment & Plan: BPH with lower urinary tract symptoms, urinary incontinence -we will do a UA C&S and PSA. Will restart tamsulosin 0.4 mg 1 twice a day. Will have him follow-up in the office in 6 weeks. We can then try and start the Myrbetriq. Tammy Mendez, DIANELYS, CONTROL AREA OPERATOR [address] [place] [address], [phone], [facility] 12/25/2024 14:54:44 12/31/19 25 text/htm claudine Hutchins is a 64-year-old gentleman who is accompanied by a staff member from [facility] where he resides. He has a medical history of hypertension, hyperlipidemia, PE and DVT, A-fib previously on Eliquis, history of chronic NSAID use and developmental delay who had massive GI bleed resulting in hemorrhagic shock and requiring duodenotomy with pyloroplasty who is here for hospital follow-up.Cuong was initially seen in the emergency room in [facility] for melena, hypotension and tachycardia. Initial hemoglobin was noted to be 7 down from a baseline of 14. CTA revealed right-sided PE and active duodenal bleeding. He was quickly transferred to [facility] by helicopter. EGD was attempted in the ICU bedside after he suffered a PEA arrest but was aborted as the entire esophagus and stomach were filled with blood precluding visualization and he was emergently rushed to the OR. He then had exploratory laparotomy for perforated duodenal ulcer with ligation of an arterial bleed. The next day he required repeat laparotomy with omental patch repair of duodenotomy, abdominal washout, placement of J-tube, JONATAN drain and wound VAC. He was able to be discharged back to his facility after an over 3-week stay. Unfortunately he was seen in the ER multiple times after his prolonged stay for dislodging of the feeding tube. This has since been removed. He is back on a mechanical soft diet.The caregiver with Cuong reports that overall he is been doing well. He is having difficulty with some memory loss. Neurology has not been wanting to increase the Donepezil but is concerned that this may cause some GI issues. He has continued to be on daily PPI. He has been taken off all NSAIDs. There are no reports of black stools or blood in the stools. No fever shakes or chills. Dasha Wick, CONTRACT RUNNER, CONTROL AREA OPERATOR [address], [phone], [facility] 12/30/2024 16:01:43 01/24/20 25 text/htm l Chief Complaint: Cuong Li is a 64-year-old male who presents today for follow-up. He has a history of frequency and urinary incontinence. He was in the hospital in July for a GI bleed and they took him off of all his medications. His incontinence became worse. I saw him in the office on December 13. We restarted the tamsulosin 0.4 mg 1 twice a day. Recommended follow-up in the office in 6 weeks and then we would restart the Myrbetriq.PSA 0.4 January 02, 2024 He is Developmentally disabled and is accompanied by a staff member from the facility. History of Present Illness: Today the staff member from the facility states the patient has been having trouble with urinary tract infections. He will not urinate on the toilet he just goes in his depends. He is currently on an antibiotic. Symptoms of UTI are dark urine with an odor. No dysuria or gross hematuria. He does not drink much water. Postvoid residual from today 58 ml Vitals, medical problems, medications, and allergies are noted below. Physical exam:Patient is alert and cooperative. In no acute distress. Skin warm and dry.Extraocular movements are intact.Head normocephalic.Normal hearingTrachea midline.Respirations deep and regular.CORINE: Deferred 40 g prostate smooth December 13, 2024. There was phimosis, however, I could retract the foreskin to expose the urethral opening.There is no peripheral edema.Gait is normal and without defect. Assessment & Plan: BPH with lower urinary tract symptoms, urinary incontinence, recurrent urinary tract infections -I explained that if he has urinary incontinence and refuses to go on the toilet he is probably can be at increased risk for infection. He also could get infection related to phimosis. We discussed increasing water intake, taking him to the bathroom every 2 hours to try and urinate, changing the depends every 2 hours, and cleaning the head of the penis every 2 hours. We will schedule the patient for renal ultrasound. We will obtain culture and sensitivity from [facility] done on January 21 We will restart the Myrbetriq 50 mg daily. I warned them about headache and increase in blood pressure. Tammy Mendez, DIANELYS, CONTROL AREA OPERATOR [address] [place] [address], [phone], [place] [facility] 01/28/2025 10:12:10
--- OUTSIDE RECORDS SUMMARY | 2025-02-28 11:15 | XMS_ITS ---
Author Organization Unknown Address [address] [place] [address] [phone] Phone Care Team Providers Care Business Unit Director Name Role Phone SUE CHAN Belle Attending Unavailable Immunization Immunization Date Status [...] CBC W/ DIFF - Collect Date/T lili: 09/26/2023 08:30 [facility] ID: [id number] [address] [place], [place], [phone] LOINC: 92658-4 Test Value Unit Reference Range Code Code System Flag WBC 7.2 10^3uL L=4.8 H=10.8 RBC 5.24 10^6uL L=4.60 H=6.20 HEMOGLOBIN 14.7 g/dL L=14.0 H=18.0 718-7 LOINC HEMATOCRIT 45.1 VOL% L=42.0 H=52.0 4544-3 LOINC MCV 86.1 fL L=80.0 H=94.0 MCH 28.1 pg L=27.0 H=32.0 MCHC 32.6 g/dL L=32.0 H=36.0 PLATELETS 194 10^3uL L=100 H=400 31964-9 LOINC RDW 14.4 % L=11.7 H=15.5 %GRAN 58.2 % L=40.0 H=70.0 65973-0 LOINC %LYMPH 29.7 % L=20.0 H=45.0 736-9 LOINC %MONO 6.5 % L=2.0 H=10.0 36447-2 LOINC %EOS 3.7 % L=0.0 H=6.0 713-8 LOINC %BASO 1.5 % L=0.0 H=3.0 706-2 LOINC #NEUT 4.2 10^3uL L=1.9 H=7.6 90538-5 LOINC #LYMPH 2.2 10^3uL L=0.9 H=4.9 70116-7 LOINC #MONO 0.5 10^3uL L=0.1 H=0.9 71571-9 LOINC #EOS 0.3 10^3uL L=0.0 H=0.6 712-0 LOINC #BASO 0.11 10^3uL L=0.00 H=0.10 47613-4 LOINC H #IM GRANS 0.0 10^3uL L=0.0 H=7.0 27777-3 LOINC %IM GRANS 0.4 % L=0.0 H=5.0 40918-2 LOINC %NRB 0.0 L=0.0 H=0.2 22393-4 LOINC #NRB 0.000 L=0.000 H=0.012 29204-3 LOINC MANUAL DIFF NOT INDICATED RBC MORPH NOT INDICATED COMPREHENSIVE METABOLIC PANE L - Collect Date/Time: 09/26/2023 06:30 [facility] ID: [id number] [address] [place], [place], [phone] LOINC: 16316-0 Test Value Unit Reference Range Code Code System Flag FASTING YES BUN 21 mg/dL L=7 H=20 3094-0 LOINC H CREATININE 1.20 mg/dL L=0.66 H=1.25 2160-0 LOINC GLUCOSE 89 mg/dL L=74 H=106 2345-7 LOINC SODIUM 141 mmol/L L=132 H=144 2951-2 LOINC POTASSIUM 4.2 mmol/L L=3.5 H=5.1 2823-3 LOINC CHLORIDE 107 mmol/L L=98 H=107 2075-0 LOINC CO2 24.0 mmol/L L=22.0 H=30.0 8-9 LOINC ANION GAP 14 L=10 H=20 80958-3 LOINC OSMOLALITY 294 mOs/kG L=280 H=296 27709-6 LOINC BUN/CREAT 17.5 3097-3 LOINC CALCIUM 9.0 mg/dL L=8.3 H=10.5 02322-7 LOINC AST 32 U/L L=15 H=46 1920-8 LOINC ALT 26 U/L L=9 H=72 1742-6 LOINC ALKALINE PHOS 47 U/L L=38 H=126 6768-6 LOINC TOTAL BILI 0.5 mg/dL L=0.2 H=1.3 1975-2 LOINC ALBUMIN 4.3 G/dL L=3.5 H=5.0 1751-7 LOINC TOTAL PROTEIN 6.9 g/L L=6.3 H=8.2 2885-2 LOINC A/G RATIO 1.7 51993-6 LOINC AGE 63 75929-3 LOINC eGFR NON-AFR 65 ml/min eGFR AFR AMER 79 ml/min LIPID PANEL - Collect Date/T lili: 09/26/2023 06:30 [facility] ID: [id number] [place], [place], [phone] LOINC: 43580-1 Test Value Unit Reference Range Code Code System Flag FASTING YES CHOLESTEROL 179 mg/dL L=0 H=200 3-3 LOINC TRIGLYCERIDE 139 mg/dL L=0 H=150 2571-8 LOINC HDL 50 mg/dL L=40 H=60 2084-9 LOINC LDL 93 mg/dL 2088-1 LOINC HGB A1C -GLYCOHEMOGLOBIN - C ollect Date/Time: 09/26/2023 06:30 [facility] ID: [id number] [place] [address], [phone] LOINC: 4548-4 Test Value Unit Reference Range Code Code System Flag HGBA1C 5.5 % 4548-4 LOINC HEPATITIS C AB (HCV Ab) - Co llect Date/Time: 09/26/2023 06:30 [facility] ID: [id number] [place] [address], [phone] LOINC: 43995-0 Test Value Unit Reference Range Code Code System Flag Hep C Virus Ab Non Reactive Non Reactive 88544-2 LOINC SEND TO IF? NO HIV 4th GEN Ab 1&2 p24 Ag in -house - Collect Date/Time: 09/26/2023 06:30 [facility] ID: [id number] [place] [address], [phone] LOINC: 38708-2 Test Value Unit Reference Range Code Code System Flag HIV-1 Ab NEGATIVE NORMAL: NON REACTIVE/NE HIV-2 Ab NEGATIVE HIV-p24 Ag NEGATIVE SEND TO [facility]? NO REFLEX? NO 5778-6 LOINC PSA-SCREENING - Collect Date /Time: 09/26/2023 06:30 [facility] ID: [id number] [address] [place] [address], [phone] LOINC: 2857-1 Test Value Unit Reference Range Code Code System Flag PSA SCREEN 0.6 ng/mL L=0.0 H=4.0 2857-1 LOINC VITAMIN B-12 - Collect Date/ Time: 09/26/2023 06:30 [facility] ID: [id number] [address] [place] [address], [phone] LOINC: 2132-9 Test Value Unit Reference Range Code Code System Flag VITAMIN B12 543 pq/mL L=239 H=931 TSH - Collect Date/Time: 06:30 [facility] ID: [id number] [address] [place] [address], [phone] LOINC: 77517-5 Test Value Unit Reference Range Code Code System Flag TSH. 3.010 uIU/L L=0.470 H=4.680 25226-1 LOINC 25 HYDROXY VITAMIN D - Colle ct Date/Time: 09/26/2023 06:30 [facility] ID: [id number] [address] [place] [address], [phone] LOINC: Test Value Unit Reference Range Code Code System Flag VITAMIN D 23.6 ng/ml L=30.0 H=100 63878-5 LOINC L Social History Type Status Start Date End Date Code Code Syst em Smoking History Never smoker (Never Smoked) 610165023 SNOMED CT Sex Male Sexual Orientation Straight or Heterosexual 28826518 SNOMED CT Gender Identity Male [id number] [address] Medications Medication Start Date End Date Route Frequency Dose Code Code System Medication Instructions Home Meds Acetaminophen 325MG Oral Tablet 06/24/2022 Unknown ORAL NEEDED EVERY 4 HOURS 2 TABLET 806642 RxNorm TAKE 2 TABLET ORAL NEEDED EVERY 4 HOURS Benazepril Hydrochloride 20MG Oral Tablet 06/24/2022 Unknown ORAL TWICE A DAY 20 MILLIGRAMS 952821 RxNorm TAKE 20 MILLIGRAMS ORAL TWICE A DAY Eliquis 5MG Oral Tablet 06/24/2022 Unknown ORAL TWICE A DAY 5 MILLIGRAMS 4360711 RxNorm TAKE 5 MILLIGRAMS ORAL TWICE A DAY Fenofibrate 145MG Oral Tablet 06/24/2022 Unknown ORAL ONCE A DAY 145 MILLIGRAMS 359487 RxNorm TAKE 145 MILLIGRAMS ORAL ONCE A DAY Myrbetriq 25MG Oral Tablet, Extended Release 06/24/2022 Unknown ORAL ONCE A DAY 25 MILLIGRAMS 2531883 RxNorm TAKE 25 MILLIGRAMS ORAL ONCE A DAY Tamsulosin HCl 0.4MG Oral Capsule 06/24/2022 Unknown ORAL AT BEDTIME 0.4 MILLIGRAMS 071753 RxNorm TAKE 0.4 MILLIGRAMS ORAL AT BEDTIME [...] Code System No Known Allergies Moderate Active 124557394 SN OMED-CT Plan of Treatment COVID-19 Drive Thru Screen 06/16/2020 COVID-19 Antibody Therapy Infusion 03/14 Colonoscopy 06/24/2022 Colonoscopy 08/02/2024 Kidney & Bladder (97092) 02/13/2025 Encounters Encounter Diagnosis Start Date Code Code Sys tem Other care home (current) drug therapy 09/26/2023 SNOMED-CT Personal Care Team Section Performer Name Performer Role Active Date Inactive CHAN Garnica PCP - Primary care physician 2022-04-20
--- OUTSIDE RECORDS SUMMARY | 2025-02-28 11:16 | XMS_ITS ---
Author Organization Unknown Address [address] [place] [phone] Phone Care Team Providers Care Parts Order And Stock Clerk Name Role Phone LONNIE MEJIA Attending Unavailable SUE Belle Primary Unavailable Immunization [...] CBC W/ DIFF - Collect Date/T lili: 01/21/2025 11:02 [facility] ID: [id number] [address] [place], [place], [phone] LOINC: 35252-7 Test Value Unit Reference Range Code Code System Flag WBC 9.3 10^3uL L=4.8 H=10.8 RBC 4.74 10^6uL L=4.60 H=6.20 HEMOGLOBIN 12.4 g/dL L=14.0 H=18.0 718-7 LOINC L HEMATOCRIT 39.6 VOL% L=42.0 H=52.0 4544-3 LOINC L MCV 83.5 fL L=80.0 H=94.0 MCH 26.2 pg L=27.0 H=32.0 L MCHC 31.3 g/dL L=32.0 H=36.0 L PLATELETS 167 10^3uL L=100 H=400 85247-1 LOINC RDW 16.1 % L=11.7 H=15.5 H %GRAN 74.6 % L=40.0 H=70.0 20036-1 LOINC H %LYMPH 15.1 % L=20.0 H=45.0 736-9 LOINC L %MONO 7.6 % L=2.0 H=10.0 73691-1 LOINC %EOS 1.7 % L=0.0 H=6.0 713-8 LOINC %BASO 0.7 % L=0.0 H=3.0 706-2 LOINC #NEUT 7.0 10^3uL L=1.9 H=7.6 91908-3 LOINC #LYMPH 1.4 10^3uL L=0.9 H=4.9 69368-5 LOINC #MONO 0.7 10^3uL L=0.1 H=0.9 73574-1 LOINC #EOS 0.2 10^3uL L=0.0 H=0.6 712-0 LOINC #BASO 0.07 10^3uL L=0.00 H=0.10 38140-8 LOINC #IM GRANS 0.0 10^3uL L=0.0 H=7.0 83707-4 LOINC %IM GRANS 0.3 % L=0.0 H=5.0 13188-1 LOINC %NRB 0.0 L=0.0 H=0.2 16285-7 LOINC #NRB 0.000 L=0.000 H=0.012 17975-6 LOINC MANUAL DIFF NOT INDICATED RBC MORPH NOT INDICATED BASIC METABOLIC PANEL - Rosanne ect Date/Time: 01/21/2025 11:02 [facility] ID: [id number] [place], [place], [phone] LOINC: 72805-5 Test Value Unit Reference Range Code Code System Flag FASTING UNKNOWN BUN 21 mg/dL L=7 H=20 3094-0 LOINC H CREATININE 1.00 mg/dL L=0.66 H=1.25 2160-0 LOINC GLUCOSE 91 mg/dL L=74 H=106 2345-7 LOINC CALCIUM 9.1 mg/dL L=8.3 H=10.5 12334-7 LOINC SODIUM 142 mmol/L L=132 H=144 2951-2 LOINC POTASSIUM 4.3 mmol/L L=3.5 H=5.1 2823-3 LOINC CHLORIDE 105 mmol/L L=98 H=107 2075-0 LOINC CO2 31.0 mmol/L L=22.0 H=30.0 2028-9 LOINC H ANION GAP 10 L=10 H=20 20445-1 LOINC OSMOLALITY 297 mOs/kG L=280 H=296 27716-3 LOINC H BUN/CREAT 21.0 3097-3 LOINC AGE 64 97667-2 LOINC eGFR NON-AFR 80 ml/min eGFR AFR AMER 97 ml/min URINALYSIS w/Microscopy/C&S if indicated - Collect Date/Time: 01/21/2025 10:50 [facility] ID: [id number] [place] [address], [phone] LOINC: 00793-3 Test Value Unit Reference Range Code Code System Flag UR SOURCE GUERRERO CATH 90726-0 LOINC COLOR YELLOW YELLOW 5778-6 LOINC CLARITY CLOUDY CLEAR 19851-9 LOINC SPEC GRAVITY 1.020 1.000-1.030 5811-5 LOINC PH 6.5 5.0 - 6.5 5803-2 LOINC LEUK EST 2+ NEGATIVE 5799-2 LOINC A NITRATE NEGATIVE NEGATIVE PROTEIN NEGATIVE NEGATIVE 5804-0 LOINC GLUCOSE NEGATIVE NEGATIVE 64709-6 LOINC KETONES NEGATIVE NEGATIVE 52947-8 LOINC UROBILINOGEN 1.0 0.2 - 1.0 5818-0 LOINC BILIRUBIN NEGATIVE NEGATIVE 55952-4 LOINC BLOOD TRACE-INT NEGATIVE 13713-1 LOINC WBC 20-30 0 - 2 77566-1 LOINC A RBC 2-5 0 - 2 44194-3 LOINC SQ EPITHELIAL RARE RARE-FEW BACTERIA 2+ NONE SEEN 77003-6 LOINC A MUCUS 1+ NONE SEEN 8247-9 LOINC YEAST NOT PRESENT NOT PRESENT 14900-4 LOINC TRICHOMONAS NOT PRESENT NOT PRESENT 46476-7 LOINC SPERMATOZOA NOT PRESENT NOT PRESENT 73426-2 LOINC CASTS NOT PRESENT 50889-6 LOINC CRYSTALS NOT PRESENT 63309-2 LOINC CULTURE? YES 8251-1 LOINC DIAGNOSIS ABN LAB RESU Social History Type Status Start Date End Date Code Code Syst em Smoking History Never smoker (Never Smoked) 021121353 SNOMED CT Sex Male Sexual Orientation Straight or Heterosexual 09047860 SNOMED CT Gender Identity Male [id number] [address] Medications Medication Start Date End Date Route Frequency Dose Code Code System Medication Instructions Home Meds Acetaminophen 325MG Oral Tablet 06/24/2022 Unknown ORAL NEEDED EVERY 4 HOURS 2 TABLET 968346 RxNorm TAKE 2 TABLET ORAL NEEDED EVERY 4 HOURS Benazepril Hydrochloride 20MG Oral Tablet 06/24/2022 Unknown ORAL TWICE A DAY 20 MILLIGRAMS 779892 RxNorm TAKE 20 MILLIGRAMS ORAL TWICE A DAY Eliquis 5MG Oral Tablet 06/24/2022 Unknown ORAL TWICE A DAY 5 MILLIGRAMS 0410416 RxNorm TAKE 5 MILLIGRAMS ORAL TWICE A DAY Fenofibrate 145MG Oral Tablet 06/24/2022 Unknown ORAL ONCE A DAY 145 MILLIGRAMS 544458 RxNorm TAKE 145 MILLIGRAMS ORAL ONCE A DAY Myrbetriq 25MG Oral Tablet, Extended Release 06/24/2022 Unknown ORAL ONCE A DAY 25 MILLIGRAMS 3529219 RxNorm TAKE 25 MILLIGRAMS ORAL ONCE A DAY Tamsulosin HCl 0.4MG Oral Capsule 06/24/2022 Unknown ORAL AT BEDTIME 0.4 MILLIGRAMS 125667 RxNorm TAKE 0.4 MILLIGRAMS ORAL AT BEDTIME [...] Code System No Known Allergies Moderate Active 376576462 SN OMED-CT Plan of Treatment COVID-19 Drive Thru Screen 06/16/2020 COVID-19 Antibody Therapy Infusion 03/14 Colonoscopy 06/24/2022 Colonoscopy 08/02/2024 Kidney & Bladder (07752) 02/13/2025 Encounters Encounter Diagnosis Start Date Code Code Sys tem Urinary tract infection, site not specified 01/21/2025 SNOMED-CT Personal Care Team Section Performer Name Performer Role Active Date Inactive CHAN Garnica PCP - Primary care physician 2022-04-20
--- OUTSIDE RECORDS SUMMARY | 2025-02-28 11:16 | XMS_ITS ---
Author Organization Unknown Address [address] [place] [phone] Phone Care Team Providers Care Cemetery Warden Name Role Phone SUE Belle Attending Unavailable [...] COMPREHENSIVE METABOLIC PANE L - Collect Date/Time: 05/21/2024 08:05 [facility] ID: [id number] [place] [address], [phone] LOINC: 30198-6 Test Value Unit Reference Range Code Code System Flag FASTING NO BUN 15 mg/dL L=7 H=20 3094-0 LOINC CREATININE 1.10 mg/dL L=0.66 H=1.25 2160-0 LOINC GLUCOSE 136 mg/dL L=74 H=106 2345-7 LOINC H SODIUM 137 mmol/L L=132 H=144 2951-2 LOINC POTASSIUM 3.9 mmol/L L=3.5 H=5.1 2823-3 LOINC CHLORIDE 103 mmol/L L=98 H=107 2075-0 LOINC CO2 25.0 mmol/L L=22.0 H=30.0 2028-9 LOINC ANION GAP 13 L=10 H=20 70621-8 LOINC OSMOLALITY 287 mOs/kG L=280 H=296 31660-4 LOINC BUN/CREAT 13.6 3097-3 LOINC CALCIUM 9.2 mg/dL L=8.3 H=10.5 39677-0 LOINC AST 24 U/L L=15 H=46 1920-8 LOINC ALT 20 U/L L=9 H=72 1742-6 LOINC ALKALINE PHOS 45 U/L L=38 H=126 6768-6 LOINC TOTAL BILI 0.4 mg/dL L=0.2 H=1.3 1975-2 LOINC ALBUMIN 3.7 G/dL L=3.5 H=5.0 1751-7 LOINC TOTAL PROTEIN 6.5 g/L L=6.3 H=8.2 2885-2 LOINC A/G RATIO 1.3 84175-5 LOINC AGE 64 33202-6 LOINC eGFR NON-AFR 72 ml/min eGFR AFR AMER 87 ml/min LIPID PANEL - Collect Date/T lili: 05/21/2024 08:05 [facility] ID: [id number] [address] [place] [address], [phone] LOINC: 08541-3 Test Value Unit Reference Range Code Code System Flag FASTING NO CHOLESTEROL 147 mg/dL L=0 H=200 3-3 LOINC TRIGLYCERIDE 137 mg/dL L=0 H=150 2571-8 LOINC HDL 41 mg/dL L=40 H=60 2084-9 LOINC LDL 69 mg/dL 2088- LOINC HGB A1C -GLYCOHEMOGLOBIN - C ollect Date/Time: 05/21/2024 08:05 [facility] ID: [id number] [address] [place] [address], [phone] LOINC: 4548-4 Test Value Unit Reference Range Code Code System Flag HGBA1C 5.6 % 4548-4 LOINC CBC W/ DIFF - Collect Date/T lili: 05/21/2024 08:05 [facility] ID: [id number] [address] [place] [address], [phone] LOINC: 12011-7 Test Value Unit Reference Range Code Code System Flag WBC 7.1 10^3uL L=4.8 H=10.8 RBC 4.78 10^6uL L=4.60 H=6.20 HEMOGLOBIN 13.6 g/dL L=14.0 H=18.0 718-7 LOINC L HEMATOCRIT 41.8 VOL% L=42.0 H=52.0 4544-3 LOINC L MCV 87.4 fL L=80.0 H=94.0 MCH 28.5 pg L=27.0 H=32.0 MCHC 32.5 g/dL L=32.0 H=36.0 PLATELETS 221 10^3uL L=100 H=400 91255-3 LOINC RDW 13.9 % L=11.7 H=15.5 %GRAN 64.5 % L=40.0 H=70.0 54590-8 LOINC %LYMPH 23.5 % L=20.0 H=45.0 736-9 LOINC %MONO 4.8 % L=2.0 H=10.0 92074-2 LOINC %EOS 5.4 % L=0.0 H=6.0 713-8 LOINC %BASO 1.4 % L=0.0 H=3.0 706-2 LOINC #NEUT 4.6 10^3uL L=1.9 H=7.6 71068-1 LOINC #LYMPH 1.7 10^3uL L=0.9 H=4.9 59681-0 LOINC #MONO 0.3 10^3uL L=0.1 H=0.9 70476-8 LOINC #EOS 0.4 10^3uL L=0.0 H=0.6 712-0 LOINC #BASO 0.10 10^3uL L=0.00 H=0.10 78000-8 LOINC #IM GRANS 0.0 10^3uL L=0.0 H=7.0 10093-9 LOINC %IM GRANS 0.4 % L=0.0 H=5.0 97232-6 LOINC %NRB 0.0 L=0.0 H=0.2 91178-5 LOINC #NRB 0.000 L=0.000 H=0.012 98992-2 LOINC MANUAL DIFF NOT INDICATED RBC MORPH NOT INDICATED Social History Type Status Start Date End Date Code Code Syst em Smoking History Never smoker (Never Smoked) 480463101 SNOMED CT Sex Male Sexual Orientation Straight or Heterosexual 74060146 SNOMED CT Gender Identity Male [id number] [address] Medications Medication Start Date End Date Route Frequency Dose Code Code System Medication Instructions Home Meds Acetaminophen 325MG Oral Tablet 06/24/2022 Unknown ORAL NEEDED EVERY 4 HOURS 2 TABLET 898054 RxNorm TAKE 2 TABLET ORAL NEEDED EVERY 4 HOURS Benazepril Hydrochloride 20MG Oral Tablet 06/24/2022 Unknown ORAL TWICE A DAY 20 MILLIGRAMS 837676 RxNorm TAKE 20 MILLIGRAMS ORAL TWICE A DAY Eliquis 5MG Oral Tablet 06/24/2022 Unknown ORAL TWICE A DAY 5 MILLIGRAMS [id number] RxNorm TAKE 5 MILLIGRAMS ORAL TWICE A DAY Fenofibrate 145MG Oral Tablet 06/24/2022 Unknown ORAL ONCE A DAY 145 MILLIGRAMS 469049 RxNorm TAKE 145 MILLIGRAMS ORAL ONCE A DAY Myrbetriq 25MG Oral Tablet, Extended Release 06/24/2022 Unknown ORAL ONCE A DAY 25 MILLIGRAMS [id number] RxNorm TAKE 25 MILLIGRAMS ORAL ONCE A DAY Tamsulosin HCl 0.4MG Oral Capsule 06/24/2022 Unknown ORAL AT BEDTIME 0.4 MILLIGRAMS [id number] RxNorm TAKE 0.4 MILLIGRAMS ORAL AT BEDTIME [...] Code System No Known Allergies Moderate Active [id number] SN OMED-CT Plan of Treatment COVID-19 Drive Thru Screen 06/16/2020 COVID-19 Antibody Therapy Infusion 03/14 Colonoscopy 06/24/2022 Colonoscopy 08/02/2024 Kidney & Bladder (28748) 02/13/2025 Encounters Encounter Diagnosis Start Date Code Code Sys tem Other half-way (current) drug therapy 05/21/2024 SNOMED-CT Personal Care Team Section Performer Name Performer Role Active Date Inactive CHAN Garnica PCP - Primary care physician 2022-04-20
--- OUTSIDE RECORDS SUMMARY | 2025-02-28 11:17 | XMS_ITS ---
Author Organization Unknown Address [address] [place] [phone] Phone Care Team Providers Care Absorption Operator Name Role Phone NADYA MONTANA Attending Unavailable SUE Belle Primary Unavailable Immunization [...] mcg/0.5 mL 05/06/2024 Completed 312 CVX Results PSA-SCREENING - Collect Date /Time: 01/02/2024 07:15 [facility] ID: [id number] [address] [place], [place], [phone] LOINC: 2857-1 Test Value Unit Reference Range Code Code System Flag PSA SCREEN 0.4 ng/mL L=0.0 H=4.0 2857-1 LOINC Social History Type Status Start Date End Date Code Code Syst em Smoking History Never smoker (Never Smoked) 361771484 SNOMED CT Sex Male Sexual Orientation Straight or Heterosexual 93992239 SNOMED CT Gender Identity Male [id number] [address] Medications Medication Start Date End Date Route Frequency Dose Code Code System Medication Instructions Home Meds Acetaminophen 325MG Oral Tablet 06/24/2022 Unknown ORAL NEEDED EVERY 4 HOURS 2 TABLET 503932 RxNorm TAKE 2 TABLET ORAL NEEDED EVERY 4 HOURS Benazepril Hydrochloride 20MG Oral Tablet 06/24/2022 Unknown ORAL TWICE A DAY 20 MILLIGRAMS 635271 RxNorm TAKE 20 MILLIGRAMS ORAL TWICE A DAY Eliquis 5MG Oral Tablet 06/24/2022 Unknown ORAL TWICE A DAY 5 MILLIGRAMS 9815629 RxNorm TAKE 5 MILLIGRAMS ORAL TWICE A DAY Fenofibrate 145MG Oral Tablet 06/24/2022 Unknown ORAL ONCE A DAY 145 MILLIGRAMS 066625 RxNorm TAKE 145 MILLIGRAMS ORAL ONCE A DAY Myrbetriq 25MG Oral Tablet, Extended Release 06/24/2022 Unknown ORAL ONCE A DAY 25 MILLIGRAMS 4706579 RxNorm TAKE 25 MILLIGRAMS ORAL ONCE A DAY Tamsulosin HCl 0.4MG Oral Capsule 06/24/2022 Unknown ORAL AT BEDTIME 0.4 MILLIGRAMS 075910 RxNorm TAKE 0.4 MILLIGRAMS ORAL AT BEDTIME [...] Code System No Known Allergies Moderate Active 039550165 SN OMED-CT Plan of Treatment COVID-19 Drive Thru Screen 06/16/2020 COVID-19 Antibody Therapy Infusion 03/14 Colonoscopy 06/24/2022 Colonoscopy 08/02/2024 Kidney & Bladder (50449) 02/13/2025 Personal Care Team Section Performer Name Performer Role Active Date Inactive CHAN Garnica PCP - Primary care physician 2022-04-20
--- OUTSIDE RECORDS SUMMARY | 2025-02-28 11:17 | XMS_ITS | Clinical Summary ---
Author Organization [facility] Address [address] [place] [address] Phone Care Team Providers Care Robot Programmer Name Role Phone Coleen Reardon MD Primary Care Provider [phone] Allergies No known active allergies Medications fenofibrate nanocrystallized (TRICOR) 145 mg tablet Take 145 mg by mouth daily. Active benazepriL (LOTENSIN) 20 mg tablet Take 20 mg by mouth 2 times daily. Tab DAVID Active apixaban (ELIQUIS) 5 mg tablet Take 2 tablets (10 mg) by mouth tonight (06/26), then starting tomorrow (06/27) Take 1 Tablet (5 mg) by mouth 2 times daily. 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 Pneumonia due to COVID-19 virus Social History Tobacco Use Types Packs/Day Years Used Date Smoking Tobacco: Never Smokeless Tobacco: Never Tobacco Cessation:Counseling Given: No Alcohol Use Standard Drinks/Week Comments Yes 0 (1 standard drink = 0.6 oz pur e alcohol) Sex and Gender Information Value Date Recorded Sex Assigned at Not on file Legal Sex Male 4:34 PM MEDICAL SAFETY DIRECTOR Gender Identity Not on file Sexual Orientation Not on file Last Filed Vital Signs Vital Sign Reading Time Taken Comments Blood Pressure 111/77 06/26/2020 12:07 PM MEDICAL SAFETY DIRECTOR Pulse 101 06/26/2020 12:07 PM MEDICAL SAFETY DIRECTOR Temperature 37.1 C (98.7 F) 06/26/2020 12:07 PM MEDICAL SAFETY DIRECTOR Respiratory Rate 20 06/26/2020 12:07 PM MEDICAL SAFETY DIRECTOR Oxygen Saturation 93% 06/26/2020 12:07 PM MEDICAL SAFETY DIRECTOR Inhaled Oxygen Concentration - - Weight 115.2 kg (254 lb) 06/21/2020 3:04 AM MEDICAL SAFETY DIRECTOR Height 177.8 cm (5' 10) 06/20/2020 7:37 PM MEDICAL SAFETY DIRECTOR Body Mass Index 36.45 06/20/2020 7:37 PM MEDICAL SAFETY DIRECTOR Plan of Treatment Health Maintenance Due Date Last Done Comments DTAP/TDAP/TD VACCINES (1 - Tdap) 02/14/1979 COLORECTAL SCREENING 02/14/2005 Colorectal Cancer Screening 02/14/2005 FIT-DNA Q 3 years 02/14/2005 FIT/FOBT Q 1 year 02/14/2005 Flex Sig/CT Colonography Q 5 years 02/14/2005 PNEUMOCOCCAL VACCINE 50+ YEARS (1 of 1 - PCV) 02/15/20 10 ZOSTER VACCINE (1 of 2) 02/14/2010 INFLUENZA VACCINE (#1) 2025 RSV VACCINE (60+ or ) (1 - 1-dose 75+ series) 02/14/2035 Insurance [place]ICAID [place] [address] [id number] RX [employer] RX Member Subscriber Plan / Payer (Ef fective 2020-Present) Name:Cuong Li Relation to Subscriber:Self Name:Cuong Li Subscriber ID:Not on file Payer ID:Not on file Group ID:[id number] Type:RX Medicare Part D Address: [address] Advance Directives For more information, please contact: [phone] * Full Code (Latest Code Status on File) Date Activated Date Inactivated Comments 06/18/2020 9:35 PM 06/26/2020 6:21 PM Care Teams Robot Programmer Relationship Specialty Start Date End Date Coleen Reardon MD [address] [place] [address] PCP - General Family Practice 06/17/20
--- OUTSIDE RECORDS SUMMARY | 2025-02-28 11:17 | XMS_ITS ---
Author Organization Unknown Address [address] [place] [phone] Phone Care Team Providers Care Aluminum Hydroxide Process Operator Name Role Phone KIMMY FONG Attending Unavailable SUE Belle Primary Unavailable Immunization [...] URINALYSIS w/Microscopy/C&S if indicated - Collect Date/Time: 08/04/2024 09:45 [facility] ID: [id number] [place], [place], [phone] LOINC: 09617-5 Test Value Unit Reference Range Code Code System Flag UR SOURCE CLEAN CATCH 15787-6 LOINC COLOR YELLOW YELLOW 5778-6 LOINC CLARITY CLEAR CLEAR 82261-9 LOINC SPEC GRAVITY >=1.030 1.000-1.030 5811-5 LOINC A PH 6.0 5.0 - 6.5 5803-2 LOINC LEUK EST TRACE NEGATIVE 5799-2 LOINC A NITRATE NEGATIVE NEGATIVE PROTEIN NEGATIVE NEGATIVE 5804-0 LOINC GLUCOSE NEGATIVE NEGATIVE 92025-7 LOINC KETONES NEGATIVE NEGATIVE 28768-3 LOINC UROBILINOGEN 0.2 0.2 - 1.0 5818-0 LOINC BILIRUBIN NEGATIVE NEGATIVE 28522-5 LOINC BLOOD NEGATIVE NEGATIVE 51705-8 LOINC WBC 0-2 0 - 2 74321-3 LOINC RBC 0-2 0 - 2 83579-0 LOINC EPITHELIAL OCCASIONA RARE-FEW 35233-6 LOINC BACTERIA FEW NONE SEEN 04487-3 LOINC MUCUS FEW NONE SEEN 8247-9 LOINC YEAST NOT PRESENT NOT PRESENT 05853-9 LOINC CASTS NONE SEEN 56809-6 LOINC CRYSTALS SEE BELOW 67094-0 LOINC CULTURE? NO 8251-1 LOINC DIAGNOSIS N/A 4 PLEX RESPIRATORY COVID FLU RSV PCR - Collect Date/Time: 08/04/2024 08:35 [facility] ID: [id number] [address] [place] [address], [phone] LOINC: 91018-1 Test Value Unit Reference Range Code Code System Flag SARS CoV2 PCR NEGATIVE FLU A PCR NEGATIVE FLU B PCR NEGATIVE RSV PCR NEGATIVE SEND TO [facility]? CBC W/ DIFF - Collect Date/T lili: 08/04/2024 08:32 [facility] ID: [id number] [address] [place], [place], [phone] LOINC: 24356-9 Test Value Unit Reference Range Code Code System Flag WBC 14.5 10^3uL L=4.8 H=10.8 H RBC 4.75 10^6uL L=4.60 H=6.20 HEMOGLOBIN 13.3 g/dL L=14.0 H=18.0 718-7 LOINC L HEMATOCRIT 40.3 VOL% L=42.0 H=52.0 4544-3 LOINC L MCV 84.8 fL L=80.0 H=94.0 MCH 28.0 pg L=27.0 H=32.0 MCHC 33.0 g/dL L=32.0 H=36.0 PLATELETS 232 10^3uL L=100 H=400 67366-8 LOINC RDW 13.4 % L=11.7 H=15.5 %GRAN 87.6 % L=40.0 H=70.0 15404-2 LOINC H %LYMPH 6.8 % L=20.0 H=45.0 736-9 LOINC L %MONO 4.3 % L=2.0 H=10.0 29470-2 LOINC %EOS 0.4 % L=0.0 H=6.0 713-8 LOINC %BASO 0.5 % L=0.0 H=3.0 706-2 LOINC #NEUT 12.7 10^3uL L=1.9 H=7.6 01607-4 LOINC H #LYMPH 1.0 10^3uL L=0.9 H=4.9 80826-6 LOINC #MONO 0.6 10^3uL L=0.1 H=0.9 04784-6 LOINC #EOS 0.1 10^3uL L=0.0 H=0.6 712-0 LOINC #BASO 0.07 10^3uL L=0.00 H=0.10 81228-6 LOINC #IM GRANS 0.1 10^3uL L=0.0 H=7.0 05137-7 LOINC %IM GRANS 0.4 % L=0.0 H=5.0 39685-9 LOINC %NRB 0.0 L=0.0 H=0.2 72671-9 LOINC #NRB 0.000 L=0.000 H=0.012 43714-3 LOINC MANUAL DIFF NOT INDICATED RBC MORPH NOT INDICATED COMPREHENSIVE METABOLIC PANE L - Collect Date/Time: 08/04/2024 08:32 [facility] ID: [id number] [address] [place], [place], [phone] LOINC: 29382-5 Test Value Unit Reference Range Code Code System Flag FASTING UNKNOWN BUN 19 mg/dL L=7 H=20 3094-0 LOINC CREATININE 0.80 mg/dL L=0.66 H=1.25 2160-0 LOINC GLUCOSE 151 mg/dL L=74 H=106 2345-7 LOINC H SODIUM 138 mmol/L L=132 H=144 2951-2 LOINC POTASSIUM 3.8 mmol/L L=3.5 H=5.1 2823-3 LOINC CHLORIDE 103 mmol/L L=98 H=107 2075-0 LOINC CO2 27.0 mmol/L L=22.0 H=30.0 2028-9 LOINC ANION GAP 12 L=10 H=20 75248-3 LOINC OSMOLALITY 291 mOs/kG L=280 H=296 73016-5 LOINC BUN/CREAT 23.8 3097-3 LOINC CALCIUM 9.4 mg/dL L=8.3 H=10.5 63560-4 LOINC AST 23 U/L L=15 H=46 1920-8 LOINC ALT 21 U/L L=9 H=72 1742-6 LOINC ALKALINE PHOS 52 U/L L=38 H=126 6768-6 LOINC TOTAL BILI 0.4 mg/dL L=0.2 H=1.3 1975-2 LOINC ALBUMIN 4.1 G/dL L=3.5 H=5.0 1751-7 LOINC TOTAL PROTEIN 6.5 g/L L=6.3 H=8.2 2885-2 LOINC A/G RATIO 1.7 35824-6 LOINC AGE 64 82335-1 LOINC eGFR NON-AFR 103 ml/min eGFR AFR AMER 125 ml/min LIPASE - Collect Date/Time: 08/04/2024 08:32 [facility] ID: [id number] [address] [place], [place], [phone] LOINC: 3040-3 Test Value Unit Reference Range Code Code System Flag LIPASE 42 U/L L=23 H=300 3040-3 LOINC PROTIME - Collect Date/Time: 08/04/2024 08:32 [facility] ID: [id number] [address] [place], [place], [id number] LOINC: 11630-9 Test Value Unit Reference Range Code Code System Flag PT 10.5 Sec L=9.7 H=11.7 99623-8 LOINC INR 1.0 Sec L=0.9 H=1.1 33638-[address] ABD/PEL WO CONTRAST - Com pleted: 08/04/2024 08:22 LOINC: 95901-5 EXAM DESCRIPTION: CT ABD/PEL WO CONTRAST REASON FOR STUDY: Hasn't felt well x 4 days abd pain , vomiting x's 1 day, pt had coloscopy last week, pt mentally challenged Duration: 1 day TECHNIQUE: CT scan of the abdomen and pelvis performed without intravenous and without oral contrast using helical scanning technique. Reconstructed coronal and sagittal MPR images reviewed. All images stored on PACS. Automated exposure control was used as a dose optimization technique for this examination. COMPARISON: CT PE dated 06/18/2020 FINDINGS: The sensitivity for detection of visceral lesions is diminished without the use of intravenous contrast. LOWER CHEST: Respiratory motion LIVER: The liver is normal in size. A 10 mm hypoattenuating lesion is seen within the left lateral section which measures cystic by density. GALLBLADDER: The gallbladder is partially distended. Motion obscures the gallbladder with no definitive evidence of acute cholecystitis. BILE DUCTS: No gross intra or extrahepatic biliary ductal dilatation. SPLEEN: The spleen is normal in size PANCREAS: . The pancreas is normal in size. There is mild stranding within the pancreaticoduodenal groove. No main ductal dilatation. No peripancreatic stranding. ADRENALS: Normal. KIDNEYS/URINARY TRACT: The kidneys are normal in size. Mild perinephric stranding, likely scarring. 4 mm nonobstructing right renal stone is seen. Urinary bladder is partially distended GI: Evaluation bowel is limited by motion. The distal esophagus is decompressed with mild stranding which may be artifact or indicative of inflammation. The stomach is distended. There is thickening and stranding of the mid duodenum. This likely reflects duodenitis. Indeterminate high density material likely represents ingested material. The small bowel is nondilated without evidence of a bowel obstruction. The colon is nondilated. A partially obscured appendix appears to be nondilated. PERITONEUM: No free air. No ascites. No organized drainable fluid collection. No lymphadenopathy is seen. Prominent gastrohepatic lymph nodes are noted likely reactive. For reference is a 9 mm lymph node in short axis (52). RETROPERITONEUM: No mass or adenopathy. REPRODUCTIVE: No significant abnormality. VASCULATURE: No abdominal aortic aneurysm. MUSCULOSKELETAL: No significant abnormality. OTHER: No other abnormality. IMPRESSION: Examination limited by motion artifact. 1. Focal thickening and stranding of the mid duodenum. This likely represents duodenitis. Indeterminate high density material within the lumen may represent ingested material or potentially blood products. Recommend correlation with dysphagia and epigastric pain. Follow-up upper endoscopy may be performed for further evaluation. Follow-up CT angiogram may be performed for further evaluation if clinical concern for GI bleed. 2. Stranding within the pancreaticoduodenal groove. 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 Recommend correlation with serum lipase. THIS IS AN ELECTRONICALLY VERIFIED FINAL REPORT 08/04/2024 8:57 AM - Electronically signed by Jem Melo M.D. AG: [facility] Report ID: [id number] Reading Location: [id number] Social History Type Status Start Date End Date Code Code Syst em Smoking History Never smoker (Never Smoked) 090961700 SNOMED CT Sex Male Sexual Orientation Straight or Heterosexual 47601652 SNOMED CT Gender Identity Male 99192997071665 [address] Medications Medication Start Date End Date Route Frequency Dose Code Code System Medication Instructions Home Meds Acetaminophen 325MG Oral Tablet 06/24/2022 Unknown ORAL NEEDED EVERY 4 HOURS 2 TABLET 671080 RxNorm TAKE 2 TABLET ORAL NEEDED EVERY 4 HOURS Benazepril Hydrochloride 20MG Oral Tablet 06/24/2022 Unknown ORAL TWICE A DAY 20 MILLIGRAMS 486294 RxNorm TAKE 20 MILLIGRAMS ORAL TWICE A DAY Eliquis 5MG Oral Tablet 06/24/2022 Unknown ORAL TWICE A DAY 5 MILLIGRAMS 7172688 RxNorm TAKE 5 MILLIGRAMS ORAL TWICE A DAY Fenofibrate 145MG Oral Tablet 06/24/2022 Unknown ORAL ONCE A DAY 145 MILLIGRAMS 001346 RxNorm TAKE 145 MILLIGRAMS ORAL ONCE A DAY Myrbetriq 25MG Oral Tablet, Extended Release 06/24/2022 Unknown ORAL ONCE A DAY 25 MILLIGRAMS 1708241 RxNorm TAKE 25 MILLIGRAMS ORAL ONCE A DAY Tamsulosin HCl 0.4MG Oral Capsule 06/24/2022 Unknown ORAL AT BEDTIME 0.4 MILLIGRAMS 962213 RxNorm TAKE 0.4 MILLIGRAMS ORAL AT BEDTIME [...] Code System No Known Allergies Moderate Active 602985134 SN OMED-CT Plan of Treatment COVID-19 Drive Thru Screen 06/16/2020 COVID-19 Antibody Therapy Infusion 03/14 Colonoscopy 06/24/2022 Colonoscopy 08/02/2024 Kidney & Bladder (38462) 02/13/2025 Encounters Encounter Diagnosis Start Date Code Code Sys tem Infectious gastroenteritis and colitis, unspecified SNOMED-CT Personal Care Team Section Performer Name Performer Role Active Date Inactive CHAN Garnica PCP - Primary care physician 2022-04-20 Imaging Narrative Notes
--- OUTSIDE RECORDS SUMMARY | 2025-02-28 11:17 | XMS_ITS ---
Author Organization Unknown Address [address] [place] [phone] Phone Care Team Providers Care Vacuum Drier Operator Name Role Phone SUE Belle Attending Unavailable [...] COVID FLU RSV PCR - Collect Date/Time: 09/18/2024 11:00 [facility] ID: [id number] [address] [place], [place], [phone] LOINC: 21576-9 Test Value Unit Reference Range Code Code System Flag SARS CoV2 PCR NEGATIVE FLU A PCR NEGATIVE FLU B PCR NEGATIVE RSV PCR NEGATIVE SEND TO [facility]? YES Social History Type Status Start Date End Date Code Code Syst em Smoking History Never smoker (Never Smoked) 870493221 SNOMED CT Sex Male Sexual Orientation Straight or Heterosexual 12796041 SNOMED CT Gender Identity Male [id number] [address] Medications Medication Start Date End Date Route Frequency Dose Code Code System Medication Instructions Home Meds Acetaminophen 325MG Oral Tablet 06/24/2022 Unknown ORAL NEEDED EVERY 4 HOURS 2 TABLET 182204 RxNorm TAKE 2 TABLET ORAL NEEDED EVERY 4 HOURS Benazepril Hydrochloride 20MG Oral Tablet 06/24/2022 Unknown ORAL TWICE A DAY 20 MILLIGRAMS 045520 RxNorm TAKE 20 MILLIGRAMS ORAL TWICE A DAY Eliquis 5MG Oral Tablet 06/24/2022 Unknown ORAL TWICE A DAY 5 MILLIGRAMS 3360967 RxNorm TAKE 5 MILLIGRAMS ORAL TWICE A DAY Fenofibrate 145MG Oral Tablet 06/24/2022 Unknown ORAL ONCE A DAY 145 MILLIGRAMS 862653 RxNorm TAKE 145 MILLIGRAMS ORAL ONCE A DAY Myrbetriq 25MG Oral Tablet, Extended Release 06/24/2022 Unknown ORAL ONCE A DAY 25 MILLIGRAMS 7276601 RxNorm TAKE 25 MILLIGRAMS ORAL ONCE A DAY Tamsulosin HCl 0.4MG Oral Capsule 06/24/2022 Unknown ORAL AT BEDTIME 0.4 MILLIGRAMS 616699 RxNorm TAKE 0.4 MILLIGRAMS ORAL AT BEDTIME [...] Code System No Known Allergies Moderate Active 107395609 SN OMED-CT Plan of Treatment COVID-19 Drive Thru Screen 06/16/2020 COVID-19 Antibody Therapy Infusion 03/14 Colonoscopy 06/24/2022 Colonoscopy 08/02/2024 Kidney & Bladder (76826) 02/13/2025 Personal Care Team Section Performer Name Performer Role Active Date Inactive CHAN Garnica PCP - Primary care physician 2022-04-20
--- OUTSIDE RECORDS SUMMARY | 2025-02-28 11:17 | XMS_ITS ---
Author Organization Unknown Address [address] [place] [phone] Phone Care Team Providers Care Cyber Policy And Strategy Planner Name Role Phone TEREPILO Belle Attending Unavailable Immunization Immunization Date Status [...] mcg/0.5 mL 05/06/2024 Completed 312 CVX Results LIPID PANEL - Collect Date/T lili: 09/02/2024 06:35 [facility] ID: [id number] [place], [place], [phone] LOINC: 74545-7 Test Value Unit Reference Range Code Code System Flag FASTING NO CHOLESTEROL 91 mg/dL L=0 H=200 3-3 LOINC TRIGLYCERIDE 119 mg/dL L=0 H=150 2571-8 LOINC HDL 23 mg/dL L=40 H=60 2084-9 LOINC L LDL 45 mg/dL 2088- LOINC TSH - Collect Date/Time: 06:35 [facility] ID: [id number] [place] [address], [id number] LOINC: 96909-5 Test Value Unit Reference Range Code Code System Flag TSH. 2.460 uIU/L L=0.470 H=4.680 04884-2 LOINC COMPREHENSIVE METABOLIC PANE L - Collect Date/Time: 09/02/2024 06:35 [facility] ID: [id number] [address] [place] [address], [phone] LOINC: 13445-8 Test Value Unit Reference Range Code Code System Flag FASTING NO BUN 19 mg/dL L=7 H=20 3094-0 LOINC CREATININE 0.60 mg/dL L=0.66 H=1.25 2160-0 LOINC L GLUCOSE 111 mg/dL L=74 H=106 2345-7 LOINC H SODIUM 132 mmol/L L=132 H=144 2951-2 LOINC POTASSIUM 4.1 mmol/L L=3.5 H=5.1 2823-3 LOINC CHLORIDE 99 mmol/L L=98 H=107 2075-0 LOINC CO2 24.0 mmol/L L=22.0 H=30.0 2028-9 LOINC ANION GAP 13 L=10 H=20 08312-9 LOINC OSMOLALITY 277 mOs/kG L=280 H=296 01279-1 LOINC L BUN/CREAT 31.7 3097-3 LOINC CALCIUM 8.4 mg/dL L=8.3 H=10.5 22130-5 LOINC AST 33 U/L L=15 H=46 1920-8 LOINC ALT 40 U/L L=9 H=72 1742-6 LOINC ALKALINE PHOS 97 U/L L=38 H=126 6768-6 LOINC TOTAL BILI 0.2 mg/dL L=0.2 H=1.3 1975-2 LOINC ALBUMIN 2.4 G/dL L=3.5 H=5.0 1751-7 LOINC L TOTAL PROTEIN 5.9 g/L L=6.3 H=8.2 2885-2 LOINC L A/G RATIO 0.7 80751-7 LOINC AGE 64 94670-6 LOINC eGFR NON-AFR 144 ml/min eGFR AFR AMER 174 ml/min VITAMIN B-12 - Collect Date/ Time: 09/02/2024 06:35 [facility] ID: [id number] [place], [place], [phone] LOINC: 2132-9 Test Value Unit Reference Range Code Code System Flag VITAMIN B12 547 pq/mL L=239 H=931 25 HYDROXY VITAMIN D - Colle ct Date/Time: 09/02/2024 06:35 [facility] ID: [id number] [place], [place], [id number] LOINC: Test Value Unit Reference Range Code Code System Flag VITAMIN D < 13.0 ng/ml L=30.0 H=100 89741-2 LOINC L HGB A1C -GLYCOHEMOGLOBIN - C ollect Date/Time: 09/02/2024 06:35 [facility] ID: [id number] [place], [place], [phone] LOINC: 4548-4 Test Value Unit Reference Range Code Code System Flag HGBA1C 5.0 % 4548-4 LOINC CBC W/ DIFF - Collect Date/T lili: 09/02/2024 06:35 [facility] ID: [id number] [address] [place], [place], [phone] LOINC: 30560-7 Test Value Unit Reference Range Code Code System Flag WBC 12.8 10^3uL L=4.8 H=10.8 H RBC 3.68 10^6uL L=4.60 H=6.20 L HEMOGLOBIN 10.0 g/dL L=14.0 H=18.0 718-7 LOINC L HEMATOCRIT 32.8 VOL% L=42.0 H=52.0 4544-3 LOINC L MCV 89.1 fL L=80.0 H=94.0 MCH 27.2 pg L=27.0 H=32.0 MCHC 30.5 g/dL L=32.0 H=36.0 L PLATELETS 286 10^3uL L=100 H=400 79660-5 LOINC RDW 15.9 % L=11.7 H=15.5 H %GRAN 74.8 % L=40.0 H=70.0 82141-5 LOINC H %LYMPH 11.0 % L=20.0 H=45.0 736-9 LOINC L %MONO 6.6 % L=2.0 H=10.0 40049-9 LOINC %EOS 5.4 % L=0.0 H=6.0 713-8 LOINC %BASO 0.9 % L=0.0 H=3.0 706-2 LOINC #NEUT 9.6 10^3uL L=1.9 H=7.6 70260-1 LOINC H #LYMPH 1.4 10^3uL L=0.9 H=4.9 79942-9 LOINC #MONO 0.8 10^3uL L=0.1 H=0.9 81227-5 LOINC #EOS 0.7 10^3uL L=0.0 H=0.6 712-0 LOINC H #BASO 0.11 10^3uL L=0.00 H=0.10 02660-2 LOINC H #IM GRANS 0.2 10^3uL L=0.0 H=7.0 28627-2 LOINC %IM GRANS 1.3 % L=0.0 H=5.0 10673-0 LOINC %NRB 0.0 L=0.0 H=0.2 17235-5 LOINC #NRB 0.000 L=0.000 H=0.012 69427-3 LOINC MANUAL DIFF NOT INDICATED RBC MORPH NOT INDICATED Social History Type Status Start Date End Date Code Code Syst em Smoking History Never smoker (Never Smoked) 113973910 SNOMED CT Sex Male Sexual Orientation Straight or Heterosexual 18198902 SNOMED CT Gender Identity Male [id number] [address] Medications Medication Start Date End Date Route Frequency Dose Code Code System Medication Instructions Home Meds Acetaminophen 325MG Oral Tablet 06/24/2022 Unknown ORAL NEEDED EVERY 4 HOURS 2 TABLET 479513 RxNorm TAKE 2 TABLET ORAL NEEDED EVERY 4 HOURS Benazepril Hydrochloride 20MG Oral Tablet 06/24/2022 Unknown ORAL TWICE A DAY 20 MILLIGRAMS 384716 RxNorm TAKE 20 MILLIGRAMS ORAL TWICE A DAY Eliquis 5MG Oral Tablet 06/24/2022 Unknown ORAL TWICE A DAY 5 MILLIGRAMS 5142594 RxNorm TAKE 5 MILLIGRAMS ORAL TWICE A DAY Fenofibrate 145MG Oral Tablet 06/24/2022 Unknown ORAL ONCE A DAY 145 MILLIGRAMS 671589 RxNorm TAKE 145 MILLIGRAMS ORAL ONCE A DAY Myrbetriq 25MG Oral Tablet, Extended Release 06/24/2022 Unknown ORAL ONCE A DAY 25 MILLIGRAMS 5044464 RxNorm TAKE 25 MILLIGRAMS ORAL ONCE A DAY Tamsulosin HCl 0.4MG Oral Capsule 06/24/2022 Unknown ORAL AT BEDTIME 0.4 MILLIGRAMS 379883 RxNorm TAKE 0.4 MILLIGRAMS ORAL AT BEDTIME [...] Code System No Known Allergies Moderate Active 825981515 SN OMED-CT Plan of Treatment COVID-19 Drive Thru Screen 06/16/2020 COVID-19 Antibody Therapy Infusion 03/14 Colonoscopy 06/24/2022 Colonoscopy 08/02/2024 US Kidney & Bladder (65383) 02/13/2025 Personal Care Team Section Performer Name Performer Role Active Date Inactive CHAN Garnica PCP - Primary care physician 2022-04-20
--- OUTSIDE RECORDS SUMMARY | 2025-02-28 11:17 | XMS_ITS ---
Author Organization Unknown Address [address] [place] [address] [phone] Phone Care Team Providers Care Net Sql Developer Name Role Phone SUE WHEATARIE Belle Attending Unavailable Immunization Immunization Date Status [...] mcg/0.5 mL 05/06/2024 Completed 312 CVX Results IRON PANEL - Collect Date/Ti me: 12/16/2024 07:10 [facility] ID: [id number] [address] [place] [address], [phone] LOINC: Test Value Unit Reference Range Code Code System Flag IRON 85 ug/dL L=49 H=181 2498-4 LOINC TIBC 388 ug/dL L=261 H=462 2500-7 LOINC %SATURATION 22 % L=13 H=45 2708-6 LOINC FERRITIN - Collect Date/Time : 12/16/2024 07:10 [facility] ID: [id number] [address] [place] [address], [id number] LOINC: 2276-4 Test Value Unit Reference Range Code Code System Flag FERRITIN 39.7 ng/mL L=17.9 H=464 2276-4 LOINC FOLIC ACID (SERUM) - Collect Date/Time: 12/16/2024 07:10 [facility] ID: [id number] [address] [place] [address], [id number] LOINC: 2284-8 Test Value Unit Reference Range Code Code System Flag FOLATE 8.1 ng/mL L=2.7 H=20.0 2284-8 LOINC VITAMIN B-12 - Collect Date/ Time: 12/16/2024 07:10 [facility] ID: [id number] [address] [place] [address], [id number] LOINC: 2132-9 Test Value Unit Reference Range Code Code System Flag VITAMIN B12 554 pq/mL L=239 H=931 CBC W/ DIFF - Collect Date/T lili: 12/16/2024 07:10 [facility] ID: [id number] [address] [place] [address], [id number] LOINC: 37194-2 Test Value Unit Reference Range Code Code System Flag WBC 4.9 10^3uL L=4.8 H=10.8 RBC 5.29 10^6uL L=4.60 H=6.20 HEMOGLOBIN 13.8 g/dL L=14.0 H=18.0 718-7 LOINC L HEMATOCRIT 44.6 VOL% L=42.0 H=52.0 4544-3 LOINC MCV 84.3 fL L=80.0 H=94.0 MCH 26.1 pg L=27.0 H=32.0 L MCHC 30.9 g/dL L=32.0 H=36.0 L PLATELETS 175 10^3uL L=100 H=400 12820-2 LOINC RDW 16.1 % L=11.7 H=15.5 H %GRAN 57.2 % L=40.0 H=70.0 02448-7 LOINC %LYMPH 27.5 % L=20.0 H=45.0 736-9 LOINC %MONO 9.0 % L=2.0 H=10.0 97402-2 LOINC %EOS 4.5 % L=0.0 H=6.0 713-8 LOINC %BASO 1.6 % L=0.0 H=3.0 706-2 LOINC #NEUT 2.8 10^3uL L=1.9 H=7.6 62520-2 LOINC #LYMPH 1.4 10^3uL L=0.9 H=4.9 96829-2 LOINC #MONO 0.4 10^3uL L=0.1 H=0.9 44523-2 LOINC #EOS 0.2 10^3uL L=0.0 H=0.6 712-0 LOINC #BASO 0.08 10^3uL L=0.00 H=0.10 56251-3 LOINC #IM GRANS 0.0 10^3uL L=0.0 H=7.0 30253-4 LOINC %IM GRANS 0.2 % L=0.0 H=5.0 13742-6 LOINC %NRB 0.0 L=0.0 H=0.2 69361-0 LOINC #NRB 0.000 L=0.000 H=0.012 83916-3 LOINC MANUAL DIFF NOT INDICATED RBC MORPH NOT INDICATED RETICULOCYTE COUNT SYSMEX - Collect Date/Time: 12/16/2024 07:10 [facility] ID: [id number] [address] [place], [place], [id number] LOINC: 91679-5 Test Value Unit Reference Range Code Code System Flag RETIC 0.8 % L=0.5 H=1.5 RET# 0.04 10^6uL L=0.02 H=0.09 IRF 5.2 % L=2.3 H=13.4 Social History Type Status Start Date End Date Code Code Syst em Smoking History Never smoker (Never Smoked) 827269321 SNOMED CT Sex Male Sexual Orientation Straight or Heterosexual 93654719 SNOMED CT Gender Identity Male [id number] [address] Medications Medication Start Date End Date Route Frequency Dose Code Code System Medication Instructions Home Meds Acetaminophen 325MG Oral Tablet 06/24/2022 Unknown ORAL NEEDED EVERY 4 HOURS 2 TABLET 500148 RxNorm TAKE 2 TABLET ORAL NEEDED EVERY 4 HOURS Benazepril Hydrochloride 20MG Oral Tablet 06/24/2022 Unknown ORAL TWICE A DAY 20 MILLIGRAMS 533798 RxNorm TAKE 20 MILLIGRAMS ORAL TWICE A DAY Eliquis 5MG Oral Tablet 06/24/2022 Unknown ORAL TWICE A DAY 5 MILLIGRAMS 2930668 RxNorm TAKE 5 MILLIGRAMS ORAL TWICE A DAY Fenofibrate 145MG Oral Tablet 06/24/2022 Unknown ORAL ONCE A DAY 145 MILLIGRAMS 535030 RxNorm TAKE 145 MILLIGRAMS ORAL ONCE A DAY Myrbetriq 25MG Oral Tablet, Extended Release 06/24/2022 Unknown ORAL ONCE A DAY 25 MILLIGRAMS 5348893 RxNorm TAKE 25 MILLIGRAMS ORAL ONCE A DAY Tamsulosin HCl 0.4MG Oral Capsule 06/24/2022 Unknown ORAL AT BEDTIME 0.4 MILLIGRAMS 579603 RxNorm TAKE 0.4 MILLIGRAMS ORAL AT BEDTIME [...] Code System No Known Allergies Moderate Active [id number] SN OMED-CT Plan of Treatment COVID-19 Drive Thru Screen 06/16/2020 COVID-19 Antibody Therapy Infusion 03/14 Colonoscopy 06/24/2022 Colonoscopy 08/02/2024 Kidney & Bladder (37410) 02/13/2025 Encounters Encounter Diagnosis Start Date Code Code Sys tem Iron deficiency anemia, unspecified 12/16/2024 SNOMED-CT Personal Care Team Section Performer Name Performer Role Active Date Inactive CHAN Garnica PCP - Primary care physician 2022-04-20
--- OUTSIDE RECORDS SUMMARY | 2025-02-28 11:17 | XMS_ITS ---
Author Organization Unknown Address [address] [place] [address] [phone] Phone Care Team Providers Care Producer Assistant Name Role Phone JARRELL MELISSA Attending Unavailable SUE Belle Primary Unavailable Immunization [...] em Smoking History Never smoker (Never Smoked) 728211820 SNOMED CT Sex Male Sexual Orientation Straight or Heterosexual 54559916 SNOMED CT Gender Identity Male [id number] Medications Medication Start Date End Date Route Frequency Dose Code Code System Medication Instructions Home Meds Acetaminophen 325MG Oral Tablet 06/24/2022 Unknown ORAL NEEDED EVERY 4 HOURS 2 TABLET 384267 RxNorm TAKE 2 TABLET ORAL NEEDED EVERY 4 HOURS Benazepril Hydrochloride 20MG Oral Tablet 06/24/2022 Unknown ORAL TWICE A DAY 20 MILLIGRAMS 339099 RxNorm TAKE 20 MILLIGRAMS ORAL TWICE A DAY Eliquis 5MG Oral Tablet 06/24/2022 Unknown ORAL TWICE A DAY 5 MILLIGRAMS 9617202 RxNorm TAKE 5 MILLIGRAMS ORAL TWICE A DAY Fenofibrate 145MG Oral Tablet 06/24/2022 Unknown ORAL ONCE A DAY 145 MILLIGRAMS 012668 RxNorm TAKE 145 MILLIGRAMS ORAL ONCE A DAY Myrbetriq 25MG Oral Tablet, Extended Release 06/24/2022 Unknown ORAL ONCE A DAY 25 MILLIGRAMS 6184617 RxNorm TAKE 25 MILLIGRAMS ORAL ONCE A DAY Tamsulosin HCl 0.4MG Oral Capsule 06/24/2022 Unknown ORAL AT BEDTIME 0.4 MILLIGRAMS 753939 RxNorm TAKE 0.4 MILLIGRAMS ORAL AT BEDTIME [...] Code System No Known Allergies Moderate Active 618683101 SN OMED-CT Plan of Treatment COVID-19 Drive Thru Screen 06/16/2020 COVID-19 Antibody Therapy Infusion 03/14 Colonoscopy 06/24/2022 Colonoscopy 08/02/2024 Kidney & Bladder (92390) 02/13/2025 Encounters Encounter Diagnosis Start Date Code Code Sys tem Unspecified atrial fibrillation 11/22/2024 SNOMED-CT Personal Care Team Section Performer Name Performer Role Active Date Inactive CHAN Garnica PCP - Primary care physician 2022-04-20
--- OUTSIDE RECORDS SUMMARY | 2025-02-28 11:18 | XMS_ITS ---
Author Organization Unknown Address [address] [place] [address] [phone] Phone Care Team Providers Care Steam Pipe Fitter Name Role Phone GUERO CAMEJO PMHNP Attending [...] mcg/0.5 mL 05/06/2024 Completed 312 CVX Results VITAMIN B-12 - Collect Date/ Time: 11/05/2024 06:44 [facility] [id number] [address] [place], [place], [id number] LOINC: 2132-9 Test Value Unit Reference Range Code Code System Flag VITAMIN B12 795 pq/mL L=239 H=931 CBC W/ DIFF - Collect Date/T lili: 11/05/2024 06:44 [facility] [id number] [address] [place], [place], [id number] LOINC: 05963-6 Test Value Unit Reference Range Code Code System Flag WBC 7.5 10^3uL L=4.8 H=10.8 RBC 4.13 10^6uL L=4.60 H=6.20 L HEMOGLOBIN 10.6 g/dL L=14.0 H=18.0 718-7 LOINC L HEMATOCRIT 34.5 VOL% L=42.0 H=52.0 4544-3 LOINC L MCV 83.5 fL L=80.0 H=94.0 MCH 25.7 pg L=27.0 H=32.0 L MCHC 30.7 g/dL L=32.0 H=36.0 L PLATELETS 289 10^3uL L=100 H=400 74079-7 LOINC RDW 17.4 % L=11.7 H=15.5 H %GRAN 70.0 % L=40.0 H=70.0 95398-6 LOINC %LYMPH 14.7 % L=20.0 H=45.0 736-9 LOINC L %MONO 9.5 % L=2.0 H=10.0 05149-1 LOINC %EOS 4.5 % L=0.0 H=6.0 713-8 LOINC %BASO 0.9 % L=0.0 H=3.0 706-2 LOINC #NEUT 5.2 10^3uL L=1.9 H=7.6 18372-7 LOINC #LYMPH 1.1 10^3uL L=0.9 H=4.9 30410-9 LOINC #MONO 0.7 10^3uL L=0.1 H=0.9 61952-6 LOINC #EOS 0.3 10^3uL L=0.0 H=0.6 712-0 LOINC #BASO 0.07 10^3uL L=0.00 H=0.10 37415-5 LOINC #IM GRANS 0.0 10^3uL L=0.0 H=7.0 40867-5 LOINC %IM GRANS 0.4 % L=0.0 H=5.0 41064-9 LOINC %NRB 0.0 L=0.0 H=0.2 99978-0 LOINC #NRB 0.000 L=0.000 H=0.012 43694-5 LOINC MANUAL DIFF NOT INDICATED RBC MORPH NOT INDICATED COMPREHENSIVE METABOLIC PANE L - Collect Date/Time: 11/05/2024 06:44 [facility] [id number] [address] [place], [place], [id number] LOINC: 45094-7 Test Value Unit Reference Range Code Code System Flag FASTING YES BUN 12 mg/dL L=7 H=20 3094-0 LOINC CREATININE 0.70 mg/dL L=0.66 H=1.25 2160-0 LOINC GLUCOSE 84 mg/dL L=74 H=106 2345-7 LOINC SODIUM 141 mmol/L L=132 H=144 2951-2 LOINC POTASSIUM 4.0 mmol/L L=3.5 H=5.1 2823-3 LOINC CHLORIDE 109 mmol/L L=98 H=107 2075-0 LOINC H CO2 24.0 mmol/L L=22.0 H=30.0 2028-9 LOINC ANION GAP 12 L=10 H=20 22536-1 LOINC OSMOLALITY 291 mOs/kG L=280 H=296 20073-6 LOINC BUN/CREAT 17.1 3097-3 LOINC CALCIUM 9.1 mg/dL L=8.3 H=10.5 98050-6 LOINC AST 30 U/L L=15 H=46 1920-8 LOINC ALT 20 U/L L=9 H=72 1742-6 LOINC ALKALINE PHOS 58 U/L L=38 H=126 6768-6 LOINC TOTAL BILI 0.5 mg/dL L=0.2 H=1.3 1975-2 LOINC ALBUMIN 3.4 G/dL L=3.5 H=5.0 1751-7 LOINC L TOTAL PROTEIN 6.8 g/L L=6.3 H=8.2 2885-2 LOINC A/G RATIO 1.0 56669-1 LOINC AGE 64 38701-4 LOINC eGFR NON-AFR 121 ml/min eGFR AFR AMER 146 ml/min TSH - Collect Date/Time: 06:44 [facility] ID: [id number] [address] [place] [address], [id number] LOINC: 09080-2 Test Value Unit Reference Range Code Code System Flag TSH. 4.190 uIU/L L=0.470 H=4.680 53023-2 LOINC PSA-SCREENING - Collect Date /Time: 11/05/2024 06:44 [facility] ID: [id number] [address] [place] [address], [id number] LOINC: 2857-1 Test Value Unit Reference Range Code Code System Flag PSA SCREEN 0.4 ng/mL L=0.0 H=4.0 2857-1 LOINC 25 HYDROXY VITAMIN D - Colle ct Date/Time: 11/05/2024 06:44 [facility] ID: [id number] [address] [place] [address], [id number] LOINC: Test Value Unit Reference Range Code Code System Flag VITAMIN D 23.7 ng/ml L=30.0 H=100 55063-0 LOINC L LIPID PANEL - Collect Date/T lili: 11/05/2024 06:44 [facility] ID: [id number] [place], [phone] LOINC: 95351-8 Test Value Unit Reference Range Code Code System Flag FASTING YES CHOLESTEROL 130 mg/dL L=0 H=200 3-3 LOINC TRIGLYCERIDE 116 mg/dL L=0 H=150 2571-8 LOINC HDL 39 mg/dL L=40 H=60 5-9 LOINC L LDL 63 mg/dL 2088-1 LOINC HGB A1C -GLYCOHEMOGLOBIN - C ollect Date/Time: 11/05/2024 06:44 [facility] [id number] [place], [place], [id number] LOINC: 4548-4 Test Value Unit Reference Range Code Code System Flag HGBA1C 5.1 % 4548-4 LOINC Social History Type Status Start Date End Date Code Code Syst em Smoking History Never smoker (Never Smoked) 637116227 SNOMED CT Sex Male Sexual Orientation Straight or Heterosexual 90317842 SNOMED CT Gender Identity Male [id number] [address] Medications Medication Start Date End Date Route Frequency Dose Code Code System Medication Instructions Home Meds Acetaminophen 325MG Oral Tablet 06/24/2022 Unknown ORAL NEEDED EVERY 4 HOURS 2 TABLET 808055 RxNorm TAKE 2 TABLET ORAL NEEDED EVERY 4 HOURS Benazepril Hydrochloride 20MG Oral Tablet 06/24/2022 Unknown ORAL TWICE A DAY 20 MILLIGRAMS 659606 RxNorm TAKE 20 MILLIGRAMS ORAL TWICE A DAY Eliquis 5MG Oral Tablet 06/24/2022 Unknown ORAL TWICE A DAY 5 MILLIGRAMS 0209052 RxNorm TAKE 5 MILLIGRAMS ORAL TWICE A DAY Fenofibrate 145MG Oral Tablet 06/24/2022 Unknown ORAL ONCE A DAY 145 MILLIGRAMS 712000 RxNorm TAKE 145 MILLIGRAMS ORAL ONCE A DAY Myrbetriq 25MG Oral Tablet, Extended Release 06/24/2022 Unknown ORAL ONCE A DAY 25 MILLIGRAMS 4528588 RxNorm TAKE 25 MILLIGRAMS ORAL ONCE A DAY Tamsulosin HCl 0.4MG Oral Capsule 06/24/2022 Unknown ORAL AT BEDTIME 0.4 MILLIGRAMS 156747 RxNorm TAKE 0.4 MILLIGRAMS ORAL AT BEDTIME [...] Code System No Known Allergies Moderate Active 726789232 SN OMED-CT Plan of Treatment COVID-19 Drive Thru Screen 06/16/2020 COVID-19 Antibody Therapy Infusion 03/14 Colonoscopy 06/24/2022 Colonoscopy 08/02/2024 Kidney & Bladder (15421) 02/13/2025 Encounters Encounter Diagnosis Start Date Code Code Sys tem Other fpc (current) drug therapy 11/05/2024 SNOMED-CT Personal Care Team Section Performer Name Performer Role Active Date Inactive CHAN Garnica PCP - Primary care physician 2022-04-20
--- OUTSIDE RECORDS SUMMARY | 2025-02-28 11:18 | XMS_ITS ---
Author Organization Unknown Address [address] [place] [address] [phone] Phone Care Team Providers Care Washer And Capper Machine Operator Name Role Phone PETER JENNINGS Attending Unavailable [...] em Smoking History Never smoker (Never Smoked) 530337290 SNOMED CT Sex Male Sexual Orientation Straight or Heterosexual 06225604 SNOMED CT Gender Identity Male [id number] [address] Medications Medication Start Date End Date Route Frequency Dose Code Code System Medication Instructions Home Meds Acetaminophen 325MG Oral Tablet 06/24/2022 Unknown ORAL NEEDED EVERY 4 HOURS 2 TABLET 394551 RxNorm TAKE 2 TABLET ORAL NEEDED EVERY 4 HOURS Benazepril Hydrochloride 20MG Oral Tablet 06/24/2022 Unknown ORAL TWICE A DAY 20 MILLIGRAMS 772420 RxNorm TAKE 20 MILLIGRAMS ORAL TWICE A DAY Eliquis 5MG Oral Tablet 06/24/2022 Unknown ORAL TWICE A DAY 5 MILLIGRAMS 0822701 RxNorm TAKE 5 MILLIGRAMS ORAL TWICE A DAY Fenofibrate 145MG Oral Tablet 06/24/2022 Unknown ORAL ONCE A DAY 145 MILLIGRAMS 137523 RxNorm TAKE 145 MILLIGRAMS ORAL ONCE A DAY Myrbetriq 25MG Oral Tablet, Extended Release 06/24/2022 Unknown ORAL ONCE A DAY 25 MILLIGRAMS 0331196 RxNorm TAKE 25 MILLIGRAMS ORAL ONCE A DAY Tamsulosin HCl 0.4MG Oral Capsule 06/24/2022 Unknown ORAL AT BEDTIME 0.4 MILLIGRAMS 938134 RxNorm TAKE 0.4 MILLIGRAMS ORAL AT BEDTIME [...] Code System No Known Allergies Moderate Active 192149014 SN OMED-CT Plan of Treatment COVID-19 Drive Thru Screen 06/16/2020 COVID-19 Antibody Therapy Infusion 03/14 Colonoscopy 06/24/2022 Colonoscopy 08/02/2024 Kidney & Bladder (61373) 02/13/2025 Encounters Encounter Diagnosis Start Date Code Code Sys tem Other abnormalities of gait and mobility 01/13/2025 SNOMED-CT Personal Care Team Section Performer Name Performer Role Active Date Inactive CHAN Garnica PCP - Primary care physician 2022-04-20
--- OUTSIDE RECORDS SUMMARY | 2025-02-28 11:18 | XMS_ITS ---
Author Organization Unknown Address [address] [place] [address] [phone] Phone Care Team Providers Care Pattern Clerk Name Role Phone PETER JENNINGS Attending Unavailable [...] mcg/0.5 mL 05/06/2024 Completed 312 CVX Results LUMBAR SPINE - Completed: 08:18 LOINC: EXAM DESCRIPTION: ? ? LUMBAR SPINE REASON FOR STUDY: lower back pain NKI no previous fx or sx Duration: 5 days FINDINGS: Five views submitted without comparison. No acute fractures are identified. There is mild L1-L2 and L5-S1 degenerative disc disease. Inferior lumbar facet osteoarthritis is present. IMPRESSION: ? ? Mild L1-L2 and L5-S1 degenerative disc disease with inferior lumbar facet osteoarthritis. THIS IS AN ELECTRONICALLY VERIFIED FINAL REPORT 06/21/2024 1:16 PM - Electronically signed by Cuong Felipe M.D. MF: [id number] Report ID: [id number] Reading Location: [id number] Social History Type Status Start Date End Date Code Code Syst em Smoking History Never smoker (Never Smoked) 153453477 SNOMED CT Sex Male Sexual Orientation Straight or Heterosexual 65781001 SNOMED CT Gender Identity Male [id number] [address] Medications Medication Start Date End Date Route Frequency Dose Code Code System Medication Instructions Home Meds Acetaminophen 325MG Oral Tablet 06/24/2022 Unknown ORAL NEEDED EVERY 4 HOURS 2 TABLET 608580 RxNorm TAKE 2 TABLET ORAL NEEDED EVERY 4 HOURS Benazepril Hydrochloride 20MG Oral Tablet 06/24/2022 Unknown ORAL TWICE A DAY 20 MILLIGRAMS 133282 RxNorm TAKE 20 MILLIGRAMS ORAL TWICE A DAY Eliquis 5MG Oral Tablet 06/24/2022 Unknown ORAL TWICE A DAY 5 MILLIGRAMS 7304027 RxNorm TAKE 5 MILLIGRAMS ORAL TWICE A DAY Fenofibrate 145MG Oral Tablet 06/24/2022 Unknown ORAL ONCE A DAY 145 MILLIGRAMS 459882 RxNorm TAKE 145 MILLIGRAMS ORAL ONCE A DAY Myrbetriq 25MG Oral Tablet, Extended Release 06/24/2022 Unknown ORAL ONCE A DAY 25 MILLIGRAMS 7034773 RxNorm TAKE 25 MILLIGRAMS ORAL ONCE A DAY Tamsulosin HCl 0.4MG Oral Capsule 06/24/2022 Unknown ORAL AT BEDTIME 0.4 MILLIGRAMS 088029 RxNorm TAKE 0.4 MILLIGRAMS ORAL AT BEDTIME [...] Code System No Known Allergies Moderate Active 169117619 SN OMED-CT Plan of Treatment COVID-19 Drive Thru Screen 06/16/2020 COVID-19 Antibody Therapy Infusion 03/14 Colonoscopy 06/24/2022 Colonoscopy 08/02/2024 Kidney & Bladder (61258) 02/13/2025 Encounters Encounter Diagnosis Start Date Code Code Sys tem Other intervertebral disc de generation, lumbar region without mention of lumbar back pain or lower extremity pain 06/19/2024 SNOMED-CT Personal Care Team Section Performer Name Performer Role Active Date Inactive CHAN Garnica PCP - Primary care physician 2022-04-20 Imaging Narrative Notes
== END 2025-02-28 11:10 | disposition home or self-care (01) ==
LOC: ANHAUDIO 11:11
PROVIDERS: PCP Family Medicine; Visit Provider Family Medicine
DX: H91.93 Unspecified hearing loss, bilateral (principal); Z01.118 Encounter for examination of ears and hearing with other abnormal findings
CPT/HCPCS: 92552; 92556; 92567